=== PATIENT | male | born 1950 | race Caucasian/White ===

== ENCOUNTER → 2016-07-06 | Outpatient (CLI) | payer OTHER ==
--- NOTE | 2016-07-06 13:57 | KCIC ---
PROCEDURE MR of the left shoulder HISTORY Left shoulder pain. Soreness since May 2016. TECHNIQUE Routine multiplanar sequences are obtained. COMPARISON None FINDINGS The acromioclavicular joint is mildly degenerative. Mild generalized rotator cuff signal compatible with tendinosis. There is a full-thickness non retracted tear of the anterior supraspinatus tendon measuring about 8 millimeters AP diameter. Partial tear of the subscapularis tendon. Only very mild rotator cuff muscle volume loss. Trace subdeltoid bursal fluid No significant glenohumeral joint effusion. Small anteroinferior paralabral cyst, centered at about the 5 o'clock location. This communicates with some mild signal within the anteroinferior labrum compatible with a tear. The paralabral cyst extends towards the quadrilateral space. There is moderate fatty infiltration of the teres minor muscle as could be seen with quadrilateral space syndrome or axillary nerve impingement, chronic. The superior labrum is also irregular with some mild signal compatible with a small tear. The biceps tendon is intact, with mild tendinosis. No bone lesion or acute fracture. IMPRESSION 1. Tear of the anteroinferior labrum with small paralabral cyst. Moderate fatty infiltration of the teres minor muscle could indicate axillary impingement or chronic quadrilateral space syndrome. 2. Small non retracted full-thickness tear at the anterior supraspinatus tendon footprint. 3. Small superior labral tear. Electronically signed by: Wiliam Villanueva MD (Jul 06, 2016 13:56:20)
== END | disposition home or self-care (01) ==
LOC: KCIC MRI 12:44
PROVIDERS: ATTEND Chiropractor
DX: S43.432A Superior glenoid labrum lesion of left shoulder, initial encounter (principal); W19.XXXA Unspecified fall, initial encounter; Y93.89 Activity, other specified; Y92.89 Other specified places as the place of occurrence of the external cause; Y99.8 Other external cause status
CPT/HCPCS: 73221

== ENCOUNTER → 2018-02-17 | Outpatient (CLI) | payer OTHER ==
--- NOTE | 2018-02-17 15:59 | KCIC ---
4 view left rib detail series Clinical indications: Left flank pain of the lower posterior ribs for one week. FINDINGS: No acute left rib fracture or osteolytic process is seen. IMPRESSION: No acute left rib fracture. Electronically signed by: Lane Cortez MD (02/17/2018 3:56 PM) [place] [id number]
--- NOTE | 2018-02-17 16:01 | KCIC ---
CHEST PA LATERAL Clinical indications: Left flank pain of the lower posterior left rib cage for one week. No known injury. COMPARISON: None available. Findings: There is mild blunting of the left lateral costophrenic angle without blunting of the posterior costophrenic angle. This may be seen with pleural thickening rather than pleural effusion. No acute lung infiltrate or pulmonary edema or lung mass or pneumothorax is seen. The heart size, pulmonary vasculature, mediastinum and both [place] are unremarkable. The osseous structures appear intact. Impression: No acute radiographic abnormality is seen. Electronically signed by: Lane Cortez MD (02/17/2018 3:58 PM) [place] [id number]
== END | disposition home or self-care (01) ==
LOC: KCIC 12:29
PROVIDERS: ATTEND Family Medicine
DX: R07.81 Pleurodynia (principal)
CPT/HCPCS: 71046; 71100

== ENCOUNTER → 2020-09-06 | Outpatient (CLI) | payer OTHER ==
--- NOTE | 2020-09-06 16:32 | KCIC ---
EXAM: Neck sonogram. HISTORY: Left facial swelling and cervical lymphadenopathy. TECHNIQUE: Sonographic imaging of the left neck was performed. COMPARISON: None. FINDINGS: There is a small benign-appearing lymph node within cortex and fatty hilum along the latera l aspect of the left parotid gland measuring 10 mm in long axis, likely physiologic in etiology. The left parotid and submental glands are unremarkable. No suspicious mass or pathologically enlarged lym ph node is seen. IMPRESSION: No suspicious sonographic finding. Specifically, no suspicious mass or lymphadenopathy. C ross-sectional imaging may be indicated if there is concern for a sonographically occult lesion. Electronically signed by: Nicky Shultz MD (09/06/2020 4:29 PM) [id number]
== END ==
LOC: KCIC US 15:25
PROVIDERS: ATTEND Nurse Practitioner Gerontology
DX: R22.0 Localized swelling, mass and lump, head (principal)
CPT/HCPCS: 76536

== ENCOUNTER 2021-01-10 16:53 | Inpatient (IN) | payer OTHER ==
[~2021-01-10] VITALS: Ht 165.1 cm; Wt 69.1 kg
[2021-01-10] MEDS ORDERED: ORPHENADRINE CITRATE 60 MG/2 ML VIAL. IM ONE (19:30)
[2021-01-10] MEDS ORDERED: fentaNYL PF VIAL 100 MCG/2 ML VIAL IVP ONE (19:30)
[2021-01-10] MEDS ORDERED: methylPREDNISolone SOD SUCC PF 125 MG/2 ML VIAL. IV ONE (19:30)
--- NOTE | 2021-01-10 20:28 | PHYS DOC ---
Past Medical History Additional Past Medical Histor: CHRONIC NECK PAIN,BPH,TMJ Past Surgical History: No Surgical History Smoking Status: Never Smoker Alcohol Use: Occasionally General Adult EDM: Chief Complaint: NECK PAIN HPI: HPI: Patient is a 70 year old male who presents with chronic neck pain since October 30 and over the weekend is gotten worse. He states that 2 weeks ago he had an MRI done at [facility]. He states that his chiropractor referred him to this. He states that his chiropractor said that the MRI is just showing some arthritis. Patient has an appointment with his primary care doctor tomorrow. He has only been taking Voltaren tablets and recently ibuprofen for his pain. He had a root canal done today. Patient denies fever, dizziness but states he does have a headache that goes up the right side of his head. He denies stiffness of his neck, vision change, numbness or tingling, focal weakness, injury. Currently rating his pain at a 9 out of 10. Patient cannot sit still and is standing up and sitting down and rolling from side to side in the bed because he cannot get comfortable. He states is been like this since October. Patient has a history of BPH and TMJ. Review of Systems: Review of Systems: Constitutional: Denies fever or chills. [] Eyes: Denies change in visual acuity. [] HENT: Denies nasal congestion or sore throat. [] Respiratory: Denies cough or shortness of breath. [] Cardiovascular: Denies chest pain or edema. [] GI: Denies abdominal pain, nausea, vomiting, bloody stools or diarrhea. [] : Denies dysuria. [] Musculoskeletal: + Cervical back pain or denies joint pain. [] Integument: Denies rash. [] Neurologic: + headache, denies focal weakness or sensory changes. [] Endocrine: Denies polyuria or polydipsia. [] Lymphatic: Denies swollen glands. [] Psychiatric: Denies depression or anxiety. [] Heart Score: C/O Chest Pain: No Current Medications: Current Medications Medications (Trade) Dose Ordered Sig/Dakota Start Time Stop Time Status Last Admin Dose Admin Fentanyl Citrate (Fentanyl 2ml Vial) 50 mcg 1X ONCE 01/10/21 19:30 01/10/21 19:31 DC 01/10/21 19:47 50 MCG Methylprednisolone Sodium Succinate (SOLU-Medrol 125MG VIAL) 125 mg 1X ONCE 01/10/21 19:30 01/10/21 19:31 DC 01/10/21 19:46 125 MG Orphenadrine Citrate (Norflex) 60 mg 1X ONCE 01/10/21 19:30 01/10/21 19:31 DC 01/10/21 19:46 60 MG Allergies: Allergies: Allergies Coded Allergies Type Severity Reaction Last Updated Verified No Known Drug Allergies 01/10/21 No Physical Exam: PE: Constitutional: Well developed, well nourished, no acute distress, non-toxic appearance. [] HENT: Normocephalic, atraumatic, bilateral external ears normal, oropharynx moist, no oral exudates, nose normal. [] Eyes: PERRLA, EOMI, conjunctiva normal, no discharge. [] Neck: Normal range of motion, slight tenderness just to the right adjacent of the spine, supple, no stridor. [] Cardiovascular:Heart rate regular rhythm, no murmur [] Lungs & Thorax: Bilateral breath sounds clear to auscultation [] Abdomen: Bowel sounds normal, soft, no tenderness, no masses, no pulsatile masses. [] Skin: Warm, dry, no erythema, no rash. [] Back: No tenderness, no CVA tenderness. [] Extremities: No tenderness, no cyanosis, no clubbing, ROM intact, no edema. [] Neurologic: Alert and oriented X 3, normal motor function, normal sensory function, no focal deficits noted. [] Psychologic: Affect normal, judgement normal, mood normal. [] Current Patient Data: Vital Signs: Vital Signs Date Time Temp Pulse Resp B/P (MAP) Pulse Ox O2 Delivery O2 Flow Rate FiO2 01/10/21 19:47 18 97 Room Air 01/10/21 18:05 97.4 89 207/93 (131) 97.4 EKG: EKG: [] Radiology/Procedures: Radiology/Procedures: [] Impression: [facility] [address] [place] [address] IMAGING REPORT Signed PATIENT: RICKI MARTINS ACCOUNT: [id number] : 1950 LOCATION: ER AGE: 70 SEX: M EXAM STATUS: REG ER ORD. PHYSICIAN: CLEO GREGORY APRN REASON: SEVERE RIGHT SIDE HEAD PAIN AND BACK OF NECK PAIN PROCEDURE: CT HEAD AND CERVICAL SPINE WO Exam: CT head and cervical spine INDICATION: Severe right-sided head pain and back pain TECHNIQUE: Sequential axial images through the head and cervical spine were obtained without the administration of IV contrast. Exposure: One or more of the following in the visualized dose reduction techniques were utilized for this examination: 1. Automated exposure control 2. Adjustment of the MA and/or KV according to patient size 3. Use of iterative of reconstructive technique Comparisons: None FINDINGS: Head: No focal parenchymal lesion or hemorrhage is identified. There is no midline shift or sulcal effacement. No acute vascular territory infarction is identified. Contreras-white distinction is preserved. The ventricular system is within normal limits without compression hydrocephalus. The basal cisterns are well maintained. The visualized portions of the paranasal sinuses and mastoid air cells are well- pneumatized. No acute fractures. Cervical spine: Straightening of the cervical spine which may positional. Vertebral body heights are well-maintained. Fracture to the cervical spine is not identified. Multilevel spondylotic change in cervical spine with degenerative disc disease greatest at C5-C6, C6-C7 and C7-T1. Mild bilateral facet arthropathy is also noted in cervical spine. Visualized paraspinal soft tissues are unremarkable. IMPRESSION: 1. No acute intracranial abnormality. 2. Negative CT C-spine for acute traumatic injury. Electronically signed by: Wilder Bolaños MD (01/10/2021 8:30 PM) [facility] DICTATED and SIGNED BY: WILDER BOLAÑOS MD DATE: 01/10/[id number] 0 Course & Med Decision Making: Course & Med Decision Making Pertinent Labs and Imaging studies reviewed. (See chart for details) See HPI. Alert and oriented x4. Ambulatory with a steady gait. Is moving his arms and his legs he does have range of motion in his neck but it is painful. Speaks in full complete sentences. Skin pink warm and dry. Slight tenderness to the right side of the neck just adjacent to the actual spine. When patient goes to lay back or sit up he appears to be stiff like he does not want to bend. He again denies any stiffness. Spoke to Stacey nurse practitioner of Dr. Nance he stated that if patient's pain was intolerable then he could be admitted. Patient has been given fent anyl, Solu-Medrol, Norflex. He states that did not help. I then gave him morphine 4 mg and he states that it did help more than the fentanyl but he is feeling the pain coming back after an hour. He states he would like to be admitted so that he can get this taken care of and see the neurosurgeon in the morning. Patient is admitted for intractable neck pain. [] Dragon Disclaimer: Dragon Disclaimer: This electronic medical record was generated, in whole or in part, using a voice recognition dictation system. Departure Departure Impression: Primary Impression: Cervical pain (neck) Disposition: ADMITTED INPATIENT Admitting Physician: TIANNA Condition: STABLE Referrals: MELINDA DEAL MD (PCP) CLEO GREGORY APRN Jan 10, 2021 20:28
--- NOTE | 2021-01-10 20:33 | RAD ---
Exam: CT head and cervical spine INDICATION: Severe right-sided head pain and back pain TECHNIQUE: Sequential axial images through the head and cervical spine were obtained without the admi nistration of IV contrast. Exposure: One or more of the following in the visualized dose reduction techniques were utilized for this examination: 1. Automated exposure control 2. Adjustment of the MA and/or KV according to patient size 3. Use of iterative of reconstructive technique Comparisons: None FINDINGS: Head: No focal parenchymal lesion or hemorrhage is identified. There is no midline shift or sulcal effaceme nt. No acute vascular territory infarction is identified. Contreras-white distinction is preserved. The ventricular system is within normal limits without compression hydrocephalus. The basal cisterns are well maintained. The visualized portions of the paranasal sinuses and mastoid air cells are well-pneumatized. No acute fractures. Cervical spine: Straightening of the cervical spine which may positional. Vertebral body heights are well-maintained. Fracture to the cervical spine is not identified. Multilevel spondylotic change in cervical spine with degenerative disc disease greatest at C5-C6, C6- C7 and C7-T1. Mild bilateral facet arthropathy is also noted in cervical spine. Visualized paraspinal soft tissues are unremarkable. IMPRESSION: 1. No acute intracranial abnormality. 2. Negative CT C-spine for acute traumatic injury. Electronically signed by: Wilder Dozier MD (01/10/2021 8:30 PM) [facility]
[2021-01-10] MEDS ORDERED: MORPHINE SULFATE 4 MG/ML INJ. IVP ONE (21:00)
[2021-01-10] MEDS ORDERED: MORPHINE SULFATE 2 MG/ML INJ. IVP PRN (23:00)
[2021-01-10] MEDS ORDERED: ONDANSETRON PF 4 MG/2 ML VIAL. IVP ONE (23:30)
--- NOTE | 2021-01-11 02:00 | NUR ---
Received patient to room 444 per wheelchair at 0145 from ER. Admitting diagnosis: intractable neck pain. Patient states he has been having neck pain for the last two months and that over the last weekend, the pain increased without any injury. Patient had MRI done 2 weeks ago in [place], [place] that was ordered by his chiropractor and he was told that the results showed arthritis. Patient had a CT Scan of cervical spine here at [facility] 01/10 that showed Degenerative Disc Disease of C5-T1 but was negative for traumatic injury. Patient also had a root canal on 01/10/21 and c/o pain on right side of face and head with c/o of swelling and pain. Patient is moderate distress due to neck pain. Will give IV pain meds and an ice pack. Dr. Nance was called by ER to see patient later today. Will continue to monitor.
[2021-01-11 02:30] VITALS: BP 158/72
--- NOTE | 2021-01-11 03:50 | NUR ---
Patient's to bring in current med list later this morning.
[2021-01-11 07:20] VITALS: BP 130/76
[2021-01-11 08:56] LABS: BASO % 0 % (0-3); EOS % 0 % (0-3); HEMATOCRIT 44.3 % (39.0-53.0); HEMOGLOBIN 15.8 g/dL (13.0-17.5); LYMPH # 0.4 x10^3/uL (1.0-4.8); LYMPH % 3 % (24-48); MEAN CORPUSCULAR HEMOGLOBIN 30 pg (25-35); MEAN CORPUSCULAR HGB CONC 36 g/dL (31-37); MEAN CORPUSCULAR VOLUME 84 fL (79-100); MONO # 0.4 x10^3/uL (0.0-1.1); MONO % 3 % (0-9); NEUT # 13.3 x10^3/uL (1.8-7.7); NEUT % 94 % (31-73); PLATELET COUNT 150 x10^3/uL (140-400); RED BLOOD COUNT 5.27 x10^6/uL (4.30-5.70); RED CELL DISTRIBUTION WIDTH 13.6 % (11.5-14.5); WHITE BLOOD COUNT 14.1 x10^3/uL (4.0-11.0)
--- NOTE | 2021-01-11 08:56 | PDOC1 ---
History and Physical Date of Admission Date of Admission DATE: 01/11/21 TIME: 08:55 Source Source: Chart review, Patient History of Present Illness History of Present Illness MR. 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 He has had an MRI done, at [facility]. He states that his chiropractor said that the MRI is just showing some arthritis. Patient has an appointment with his primary care doctor tomorrow. He has only been taking Voltaren tablets and recently ibuprofen for his pain. Patient denies fever, dizziness but states he does have a headache that goes up the right side of his head. He denies stiffness of his neck, vision change, numbness or tingling, focal weakness, injury. Currently rating his pain at a 9 out of 10. Patient cannot sit still and is standing up and sitting down and rolling from side to side in the bed because he cannot get comfortable. Past Medical History Past Medical History BPH, Cardiovascular: HTN GI: GERD Endocrine: Diabetes Past Surgical History Past Surgical History: No pertinent history Family History Family History: No Significant, Diabetes Social History Smoke: No ALCOHOL: none Drugs: None Current Problem List Problem List Problems Medical Problems: (1) Cervical pain (neck) Status: Acute Current Medications Current Medications Current Medications Methylprednisolone Sodium Succinate (SOLU-Medrol 125MG VIAL) 125 mg 1X ONCE IV Last administered on 01/10/21at 19:46; Start 01/10/21 at 19:30; Stop 01/10/21 at 19:31; Status DC Fentanyl Citrate (Fentanyl 2ml Vial) 50 mcg 1X ONCE IVP Last administered on 01/10/21at 19:47; Start 01/10/21 at 19:30; Stop 01/10/21 at 19:31; Status DC Orphenadrine Citrate (Norflex) 60 mg 1X ONCE IM Last administered on 01/10/21at 19:46; Start 01/10/21 at 19:30; Stop 01/10/21 at 19:31; Status DC Morphine Sulfate (Morphine Sulfate) 4 mg 1X ONCE IVP Last administered on 01/10/21at 21:24; Start 01/10/21 at 21:00; Stop 01/10/21 at 21:01; Status DC Morphine Sulfate (Morphine Sulfate) 2 mg PRN Q2HR PRN IVP SEVERE PAIN 7-10 Last administered on 01/11/21at 02:07; Start 01/10/21 at 23:00; Stop 01/11/21 at 22:59 Ondansetron HCl (Zofran) 4 mg 1X ONCE IVP ; Start 01/10/21 at 23:30; Stop 01/10/21 at 23:31; Status DC Allergies Allergies: Coded Allergies: No Known Drug Allergies (Unverified , 01/10/21) ROS General: No: Chills, Night Sweats, Fatigue, Malaise, Appetite, Other PSYCHOLOGICAL ROS: No: Anxiety, Behavioral Disorder, Concentration difficultie, Decreased libido, Depression, Disorientation, Hallucinations, Hostility, Irritablity, Memory difficulties, Mood Swings, Obsessive thoughts, Physical abuse, Sexual abuse, Sleep disturbances, Suicidal ideation, Other Eyes: No Blurry vision, No Decreased vision, No Double vision, No Dry eyes, No Excessive tearing, No Eye Pain, No Itchy Eyes, No Loss of vision, No Photo phobia, No Scotomata, No Uses contacts, No Uses glasses, No Other HEENT: YES: Heacaches; No: Visual Changes, Hearing change, Nasal congestion, Nasal discharge, Oral lesions, Sinus pain, Sore Throat, Epistaxis, Sneezing, Snoring, Tinnitus, Vertigo, Vocal changes, Other ENDOCRINE: No: Breast Changes, Galactorrhea, Hair Pattern Changes, Hot Flashes, Malaise/lethargy, Mood Swings, Palpitations, Polydipsia/polyuria, Skin Changes, Temperature Intolerance, Unexpected Weight Changes, Other Respiratory: No: Cough, Hemoptysis, Orthopnea, Pleuritic Pain, Shortness of breath, SOB with excertion, Sputum Changes, Stridor, Tachypnea, Wheezing, Other Cardiovascular: No Chest Pain, No Palpitations, No Orthopnea, No Paroxysmal Noc. Dyspnea, No Edema, No Lt Headedness, No Other Gastrointestinal: No Nausea, No Vomiting, No Abdominal Pain, No Diarrhea, No Constipation, No Melena, No Hematochezia, No Other Genitourinary: No Dysuria, No Frequency, No Incontinence, No Hematuria, No Retention, No Discharge, No Urgency, No Pain, No Flank Pain, No Other, No , No , No , No , No , No , No Musculoskeletal: Yes Joint Stiffness (neck wiht pain); No Gait Disturbance, No Joint Pain, No Joint Swelling, No Muscle Pain, No M uscular Weakness, No Pain In:, No Swelling In:, No Other Neurological: No Behavorial Changes, No Bowel/Bladder ControlChng, No Confusion, No Dizziness, No Gait Disturbance, No Headaches, No Impaired Coord/balance, No Memory Loss, No Numbness/Tingling, No Seizures, No Speech Problems, No Tremors, No Visual Changes, No Weakness, No Other Skin: Yes Dry Skin; No Eczema, No Hair Changes, No Lumps, No Mole Changes, No Mottling, No Nail Changes, No Pruritus, No Rash, No Skin Lesion Changes, No Other, No Acne Physical Exam General: Alert, Cooperative, mild distress HEENT: PERRLA, Mucous membr. moist/pink Lungs: Normal air movement Heart: S1S2, RRR, murmurs Rectal Exam: not examined Extremities: No cyanosis, Normal pulses Skin: No breakdown Neuro: Normal speech, Sensation intact Psych/Mental Status: Mental status NL, Mood NL Vitals Vitals Vital Signs Date Time Temp Pulse Resp B/P (MAP) Pulse Ox O2 Delivery O2 Flow Rate FiO2 01/11/21 07:20 98.4 85 20 130/76 (94) 93 Room Air 98.4 01/10/21 20:00 97.0 VTE Prophylaxis Ordered VTE Prophylaxis Devices: No VTE Pharmacological Prophylaxi: No Assessment/Plan Assessment/Plan neck pain, new cervical, has not improved with chiropractic Dm2 htn BPH Justifications for Admission Other Justification ION TAYLOR MD Jan 11, 2021 08:56
[2021-01-11 09:09] LABS: CALCIUM 9.1 mg/dL (8.5-10.1); CREATININE 0.9 mg/dL (0.7-1.3); GFR 83.9; POTASSIUM 4.8 mmol/L (3.5-5.1)
[2021-01-11 09:14] LABS: ALBUMIN 3.8 g/dL (3.4-5.0); ALBUMIN/GLOBULIN RATIO 1.1 (1.0-1.7); TOTAL BILIRUBIN 0.7 mg/dL (0.2-1.0); TOTAL PROTEIN 7.3 g/dL (6.4-8.2)
[2021-01-11] MEDS: MORPHINE SULFATE 2 MG/ML INJ. IVP PRN (09:39)
[2021-01-11 10:19] LABS: % BANDS 1 % (0-9); % LYMPHS 4 % (24-48); % MONOS 3 % (0-10); % SEGS 92 % (35-66); PLT ESTIMATE ADEQUATE (ADEQUATE)
[2021-01-11 11:25] VITALS: BP 131/66
[2021-01-11] MEDS ORDERED: TAMS0.4C97 PO (11:34)
[2021-01-11] MEDS ORDERED: OMEP40CA7 PO (11:34)
[2021-01-11] MEDS ORDERED: DICL50TA4 PO (11:34)
[2021-01-11] MEDS ORDERED: [UNRECOGNIZED DRUG - CODE] TD (11:34)
[2021-01-11] MEDS ORDERED: DUTA0.5C PO (11:34)
[2021-01-11] MEDS ORDERED: OMEG1CAP27 PO (11:34)
[2021-01-11] MEDS ORDERED: ACET325T9 PO (11:34)
[2021-01-11] MEDS ORDERED: ASPI-630 PO (11:34)
[2021-01-11] MEDS ORDERED: ATOR10TA60 PO (11:34)
[2021-01-11] MEDS ORDERED: MAGN250T10 PO (11:34)
[2021-01-11] MEDS ORDERED: CLIN-94 PO (11:34)
[2021-01-11] MEDS ORDERED: DICY20TA3 PO (11:34)
[2021-01-11] MEDS ORDERED: METF10007 PO (11:34)
[2021-01-11] MEDS ORDERED: MONT10TA49 PO (11:34)
[2021-01-11] MEDS ORDERED: SAW1CAPS8 PO (11:34)
[2021-01-11] MEDS ORDERED: ACETAMINOPHEN 500 MG TABLET PO PRN (13:00)
[2021-01-11] MEDS ORDERED: ACETAMINOPHEN/CODEINE 300/30MG TABLET. PO PRN (13:00)
--- NOTE | 2021-01-11 15:00 | PDOC ---
Provider Note Date of Service: DATE: 01/11/21 TIME: 14:52 Provider Note 70 year old male admit with neck pain, worse over weeks, started in October and he has been seeking vp care management. He has had an MRI done at [facility]. Patient has an appointment with his primary care doctor tomorrow. He has only been taking Voltaren tablets and recently ibuprofen for his pain. Reports pain in the right side of his neck and radiates up behind his right ear. neuro intact Requested MRI from [facility] through [employer] will follow Justifications for Admission Other Justification NAMRATA MOORE MD Jan 11, 2021 14:59
[2021-01-11 15:20] VITALS: BP 134/63
[2021-01-11] MEDS ORDERED: DOCUSATE SODIUM 100 MG CAPSULE. PO PRN (15:30)
[2021-01-11] MEDS: oxyCODONE/APAP 5/325 1 TAB TABLET PO PRN ×2 (15:34→23:43)
[2021-01-11] MEDS: metFORMIN 500 MG TABLET PO SCH (17:41)
[2021-01-11] MEDS: DICYCLOMINE HCL 10 MG CAPSULE PO SCH ×2 (17:41→21:33)
[2021-01-11] MEDS: DEXAMETHASONE SOD PHOS 4 MG/ML VIAL IVP SCH ×2 (17:43→23:43)
[2021-01-11 19:30] VITALS: BP 134/72
[2021-01-11] MEDS: CLINDAMYCIN HCL 150 MG CAPSULE. PO SCH (21:33)
[2021-01-11] MEDS: DICLOFENAC SODIUM 25 MG TABLET.DR PO SCH (21:33)
[2021-01-11] MEDS: MONTELUKAST SODIUM 10 MG TABLET. PO SCH (21:34)
[2021-01-11] MEDS: ATORVASTATIN CALCIUM 10 MG TABLET. PO SCH (21:34)
--- NOTE | 2021-01-11 22:50 | CONS ---
DATE OF CONSULTATION: 01/11/2021 LOCATION: He is in room 444. I saw him at the request of Dr. Padilla for evaluation of neck pain. HISTORY OF PRESENT ILLNESS: This is a 70-year-old male with chronic neck pain going on since October without any radiation of pain to the extremities or any tingling and numbness sensation. The pain mostly over the right side of his neck, goes up to the right side of his face. He denies any tingling, numbness sensation in the extremities or any trouble with his bowel or bladder control or balance. The patient has seen Dr. Stauffer and also chiropractor, had x-rays and MRI scan done, which revealed multilevel degenerative disk disease and degenerative joint disease. The patient has been taking Voltaren without any stomach irritation. ALLERGIES: He is not known allergic to any medication. PAST MEDICAL HISTORY: Includes benign prostatic hypertrophy, hypertension, gastroesophageal reflux disease, diabetes. 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 He also uses physical modalities and exercises. PHYSICAL EXAMINATION: Physical exam today revealed a middle-aged male. He is alert, oriented to time, place, person and circumstance, follows commands appropriately. Moves all 4 extremities voluntarily where he had 4+/5 grade muscle strength. Deep tendon reflexes are decreased overall. He had equal perception of touch and pinprick sensation bilaterally. He had significant limitation of lateral bending of the cervical spine. Some limitation of flexion and extension too. No significant tenderness to palpation of cervical spine or cervical paraspinal muscles or posterior shoulder girdle muscles. He is independent with his mobility and self-care. He can walk on his tiptoes and on his heels and in a straight line, one foot in front of the other without any loss of balance. No significant cervical paraspinal muscle spasm was noted at this time. ASSESSMENT: Chronic neck pain from degenerative disk disease and degenerative joint disease of cervical vertebrae without any clinical evidence of ongoing cervical radiculopathy or no clinical evidence of cervical spinal stenosis. The patient with known diabetes mellitus with peripheral neuropathy. RECOMMENDATIONS: I have instructed him in a home program of physical modalities and relax stretching exercises and continue taking anti-inflammatory medications along with other meds for stomach or kidneys. I do not see any need for any trigger point injections or cervical epidural steroid injections at the present time. Dr. Padilla appreciate asking me to participate in the care of this interesting patient. Home when medically stable with outpatient followup. SRK/CYNDI/MANUELITO DR: RONN/ana TID: [id number]
[2021-01-11 23:25] VITALS: BP 154/74
[2021-01-12 02:50] VITALS: BP 155/77
[2021-01-12] MEDS: PANTOPRAZOLE 40 MG TABLET.DR. PO SCH (06:03)
[2021-01-12] MEDS: DEXAMETHASONE SOD PHOS 4 MG/ML VIAL IVP SCH ×2 (06:04→12:04)
[2021-01-12 07:00] VITALS: BP 168/84
--- NOTE | 2021-01-12 08:22 | PDOC ---
[employer] PROGRESS NOTE Date of Service DOS: DATE: 01/12/21 TIME: 08:18 Chief Complaint Chief Complaint neck pain, new cervical, has not improved with chiropractic Dm2 htn BPH History of Present Illness History of Present Illness MR. Coyne is a 70 year old male admit with left neck pain, worse over weeks, started in October and he has been seeking career information specialist. He has had an MRI done, at [facility]. Thought this was initially due to dental caries and after having a root canal on 01/10/2021 and laying in the dental chair for several hours his pain yet so severe he was unable to make his primary care appointment to review the MRI results and came to the ED instead. He states that his chiropractor said that the MRI is just showing some arth ritis. He has only been taking Voltaren tablets and recently ibuprofen for his pain. Initial pain was 9 out of 10 Patient denies fever, dizziness but states he does have a headache that goes up the right side of his head. He denies stiffness of his neck, vision change, numbness or tingling, focal weakness, injury. Patient cannot sit still and is standing up and sitting down and rolling from side to side in the bed because he cannot get comfortable. Pain resolved with IV morphine which she is requesting he says oral Percocet did not help quite as much and after taking steroids he was up all night. Currently rating his pain at a 4 out of 10. Tentative plan to do steroids and outpatient epidural steroid injection per neurosurgery. No weakness no numbness or tingling. MRI report not available to me but there is definitely C5-6 C6-7 anterior disc bulging right greater than left. Vitals/I&O Vitals/I&O: Vital Signs Date Time Temp Pulse Resp B/P (MAP) Pulse Ox O2 Delivery O2 Flow Rate FiO2 01/12/21 02:50 97.7 70 20 155/77 (103) 94 Room Air 97.7 I & O 01/11/21 01/11/21 01/12/21 15:00 23:00 07:00 Intake Total 250 ml 500 ml 0 ml Balance 250 ml 500 ml 0 ml Physical Exam General: Alert, Cooperative, mild distress Extremities: No cyanosis, Normal pulses Skin: No breakdown Assessment and Plan Assessmemt and Plan Problems Medical Problems: (1) Cervical pain (neck) Status: Acute Comment Review of Relevant I have reviewed the following items gallo (where applicable) has been applied. Medications: Current Medications Medications (Trade) Dose Ordered Sig/[place] Route PRN Reason Start Time Stop Time Status Last Admin Dose Admin Morphine Sulfate (Morphine Sulfate) 4 mg PRN Q2HR PRN IVP PAIN 01/11/21 09:00 01/11/21 09:39 Oxycodone/ Acetaminophen (Percocet 5/325) 1 tab PRN Q4HRS PRN PO SEVERE PAIN 01/11/21 13:00 01/11/21 23:43 Docusate Sodium (Colace) 100 mg PRN DAILY PRN PO HARD STOOLS 01/11/21 15:30 01/11/21 15:34 Atorvastatin Calcium (Lipitor) 10 mg HS PO 01/11/21 21:00 01/11/21 21:34 Montelukast Sodium (Singulair) 10 mg HS PO 01/11/21 21:00 01/11/21 21:34 Clindamycin HCl (Cleocin) 300 mg TID PO 01/11/21 21:00 01/11/21 21:33 Diclofenac Sodium (Voltaren) 50 mg BID PO 01/11/21 21:00 01/11/21 21:33 Dicyclomine HCl (Bentyl) 40 mg QID PO 01/11/21 17:00 01/11/21 21:33 Metformin HCl (Glucophage) 1,000 mg BIDWMEALS PO 01/11/21 17:00 01/11/21 17:41 Pantoprazole Sodium (Protonix) 40 mg DAILYAC PO 01/12/21 07:30 01/12/21 06:03 Dexamethasone Sodium Phosphate (Decadron) 4 mg Q6HRS IVP 01/11/21 18:00 01/12/21 06:04 Justifications for Admission Other Justification JHOAN ROSENBERG MD Jan 12, 2021 08:22
[2021-01-12] MEDS: DUTASTERIDE 0.5 MG CAPSULE PO SCH (09:27)
[2021-01-12] MEDS: metFORMIN 500 MG TABLET PO SCH ×2 (09:28→16:24)
[2021-01-12] MEDS: DICYCLOMINE HCL 10 MG CAPSULE PO SCH ×4 (09:28→20:45)
[2021-01-12] MEDS: ASPIRIN CHEWABLE 81 MG TABLET. PO SCH (09:28)
[2021-01-12] MEDS: CLINDAMYCIN HCL 150 MG CAPSULE. PO SCH ×3 (09:28→20:44)
[2021-01-12] MEDS: DICLOFENAC SODIUM 25 MG TABLET.DR PO SCH ×2 (09:28→20:43)
[2021-01-12] MEDS: MAGNESIUM OXIDE 400 MG TABLET PO SCH (09:28)
[2021-01-12] MEDS: TAMSULOSIN 0.4 MG CAP.ER.24H. PO SCH (09:28)
[2021-01-12] MEDS: OMEGA-3 FATTY ACIDS/FISH OIL 1,000 MG CAPSULE. PO SCH (09:28)
[2021-01-12] MEDS: oxyCODONE/APAP 5/325 1 TAB TABLET PO PRN ×2 (09:33→13:28)
[2021-01-12 11:00] VITALS: BP 146/71
[2021-01-12] MEDS ORDERED: OXYC1TAB15 PO (11:12)
[2021-01-12] MEDS ORDERED: DEXA4TAB63 PO (11:12)
--- NOTE | 2021-01-12 11:21 | PDOC ---
PROGRESS NOTES Date of Service DATE: 01/12/21 TIME: 11:19 Subjective Subjective He still continued neck pain and also having tooth ache. Objective Objective Vital Signs Date Time Temp Pulse Resp B/P (MAP) Pulse Ox O2 Delivery O2 Flow Rate FiO2 01/12/21 10:05 16 Room Air 01/12/21 07:00 96.9 74 168/84 (112) 94 96.9 01/10/21 20:00 97.0 Intake and Output 01/12/21 07:00 Intake Total 750 ml Balance 750 ml Intake Oral 750 ml # Voids 2 Physical Exam Physical Exam He is alert,sitting up in bedside chair and he continues with stiffness of his neck and he is independent with his mobility and self care. Assessment Assessment Problems Medical Problems: (1) Cervical pain (neck) Status: Acute Plan Plan of Alf when medically stable. Comment Review of Relevant I have reviewed the following items gallo (where applicable) has been applied. Labs Laboratory Tests Test 01/11/21 07:40 White Blood Count 14.1 x10^3/uL (4.0-11.0) Red Blood Count 5.27 x10^6/uL (4.30-5.70) Hemoglobin 15.8 g/dL (13.0-17.5) Hematocrit 44.3 % (39.0-53.0) Mean Corpuscular Volume 84 fL (79-100) Mean Corpuscular Hemoglobin 30 pg (25-35) Mean Corpuscular Hemoglobin Concent 36 g/dL (31-37) Red Cell Distribution Width 13.6 % (11.5-14.5) Platelet Count 150 x10^3/uL (140-400) Neutrophils (%) (Auto) 94 % (31-73) Lymphocytes (%) (Auto) 3 % (24-48) Monocytes (%) (Auto) 3 % (0-9) Eosinophils (%) (Auto) 0 % (0-3) Basophils (%) (Auto) 0 % (0-3) Neutrophils # (Auto) 13.3 x10^3/uL (1.8-7.7) Lymphocytes # (Auto) 0.4 x10^3/uL (1.0-4.8) Monocytes # (Auto) 0.4 x10^3/uL (0.0-1.1) Eosinophils # (Auto) 0.0 x10^3/uL (0.0-0.7) Basophils # (Auto) 0.0 x10^3/uL (0.0-0.2) Segmented Neutrophils % 92 % (35-66) Band Neutrophils % 1 % (0-9) Lymphocytes % 4 % (24-48) Monocytes % 3 % (0-10) Platelet Estimate Adequate (ADEQUATE) Sodium Level 130 mmol/L (136-145) Potassium Level 4.8 mmol/L (3.5-5.1) Chloride Level 93 mmol/L (98-107) Carbon Dioxide Level 28 mmol/L (21-32) Anion Gap 9 (6-14) Blood Urea Nitrogen 16 mg/dL (8-26) Creatinine 0.9 mg/dL (0.7-1.3) Estimated GFR (Cockcroft-Gault) 83.9 BUN/Creatinine Ratio 18 (6-20) Glucose Level 219 mg/dL (70-99) Calcium Level 9.1 mg/dL (8.5-10.1) Total Bilirubin 0.7 mg/dL (0.2-1.0) Aspartate Amino Transf (AST/SGOT) 42 U/L (15-37) Alanine Aminotransferase (ALT/SGPT) 74 U/L (16-63) Alkaline Phosphatase 45 U/L (46-116) Total Protein 7.3 g/dL (6.4-8.2) Albumin 3.8 g/dL (3.4-5.0) Albumin/Globulin Ratio 1.1 (1.0-1.7) Medications Current Medications Methylprednisolone Sodium Succinate (SOLU-Medrol 125MG VIAL) 125 mg 1X ONCE IV Last administered on 01/10/21at 19:46; Start 01/10/21 at 19:30; Stop 01/10/21 at 19:31; Status DC Fentanyl Citrate (Fentanyl 2ml Vial) 50 mcg 1X ONCE IVP Last administered on 01/10/21at 19:47; Start 01/10/21 at 19:30; Stop 01/10/21 at 19:31; Status DC Orphenadrine Citrate (Norflex) 60 mg 1X ONCE IM Last administered on 01/10/21at 19:46; Start 01/10/21 at 19:30; Stop 01/10/21 at 19:31; Status DC Morphine Sulfate (Morphine Sulfate) 4 mg 1X ONCE IVP Last administered on 01/10/21at 21:24; Start 01/10/21 at 21:00; Stop 01/10/21 at 21:01; Status DC Morphine Sulfate (Morphine Sulfate) 2 mg PRN Q2HR PRN IVP SEVERE PAIN 7-10 Last administered on 01/11/21at 02:07; Start 01/10/21 at 23:00; Stop 01/11/21 at 09:00; Status DC Ondansetron HCl (Zofran) 4 mg 1X ONCE IVP ; Start 01/10/21 at 23:30; Stop 01/10/21 at 23:31; Status DC Morphine Sulfate (Morphine Sulfate) 4 mg PRN Q2HR PRN IVP PAIN Last administered on 01/11/21at 09:39; Start 01/11/21 at 09:00 Oxycodone/ Acetaminophen (Percocet 5/325) 1 tab PRN Q4HRS PRN PO SEVERE PAIN Last administered on 01/12/21at 09:33; Start 01/11/21 at 13:00 Acetaminophen/ Codeine Phosphate (Tylenol #3) 1 tab PRN Q6HRS PRN PO MODERATE PAIN; Start 01/11/21 at 13:00 Acetaminophen (Tylenol) 1,000 mg PRN Q6HRS PRN PO MILD PAIN 1-3; Start 01/11/21 at 13:00 Docusate Sodium (Colace) 100 mg PRN DAILY PRN PO HARD STOOLS Last administered on 01/11/21at 15:34; Start 01/11/21 at 15:30 Aspirin (Aspirin Chewable) 81 mg DAILY PO Last administered on 01/12/21at 09:28; Start 01/12/21 at 09:00 Atorvastatin Calcium (Lipitor) 10 mg HS PO Last administered on 01/11/21at 21:34; Start 01/11/21 at 21:00 Dutasteride (Avodart) 0.5 mg DAILY PO Last administered on 01/12/21at 09:27; Start 01/12/21 at 09:00 Montelukast Sodium (Singulair) 10 mg HS PO Last administered on 01/11/21at 21:34; Start 01/11/21 at 21:00 Tamsulosin HCl (Flomax) 0.8 mg DAILY PO Last administered on 01/12/21 09:28; Start 01/12/21 at 09:00 Clindamycin HCl (Cleocin) 300 mg TID PO Last administered on 01/12/21 09:28; Start 01/11/21 at 21:00 Diclofenac Sodium (Voltaren) 50 mg BID PO Last administered on 01/12/21 09:28; Start 01/11/21 at 21:00 Dicyclomine HCl (Bentyl) 40 mg QID PO Last administered on 01/12/21 09:28; Start 01/11/21 at 17:00 Magnesium Oxide (Magnesium Oxide) 200 mg DAILY PO Last administered on 01/12/21 09:28; Start 01/12/21 at 09:00 Metformin HCl (Glucophage) 1,000 mg BIDWMEALS PO Last administered on 01/12/21 09:28; Start 01/11/21 at 17:00 Fish Oil (Fish Oil) 1,000 mg DAILY PO Last administered on 01/12/21 09:28; Start 01/12/21 at 09:00 Pantoprazole Sodium (Protonix) 40 mg DAILYAC PO Last administered on 01/12/21 06:03; Start 01/12/21 at 07:30 Dexamethasone Sodium Phosphate (Decadron) 4 mg Q6HRS IVP Last administered on 01/12/21 06:04; Start 01/11/21 at 18:00 Active Scripts Active Percocet 5-325 Mg Tablet (Oxycodone/Acetaminophen) 1 Each Tablet 1 Tab PO PRN Q6HRS PRN 6 Days Decadron (Dexamethasone) 4 Mg Tablet 1 Tab PO BID 5 Days Reported Tylenol (Acetaminophen) 325 Mg Tablet 2 Tab PO PRN Q4HRS Metformin Hcl 1,000 Mg Tablet 1,000 Mg PO BIDWMEALS Diclofenac Sodium 50 Mg Tablet.dr 1 Tab PO BID Clindamycin Hcl 300 Mg Capsule 300 Mg PO TID Fish Oil 1,000 Mg Softgel ([place]-3 Fatty Acids/Fish Oil) 1 Each Capsule 2 Each PO DAILY Saw [place] 450 mg Capsule (Saw [place] Fruit/Zinc Picoli) 1 Each Capsule 2 Each PO DAILY Aspirin 81 Mg Tab.chew 1 Tab PO DAILY Magnesium (Magnesium Oxide) 250 Mg Tablet 1 Tab PO DAILY 30 Days Testosterone 2.5 Gm Gel.packet 2.5 Gm TD DAILY08 Flomax (Tamsulosin Hcl) 0.4 Mg Cap.er.24h 2 Cap PO DAILY Dicyclomine Hcl 20 Mg Tablet 40 Mg PO QID Atorvastatin Calcium 10 Mg Tablet 10 Mg PO HS Montelukast Sodium Tablet (Montelukast Sodium) 10 Mg Tablet 10 Mg PO HS Omeprazole 40 Mg Capsule.dr 40 Mg PO DAILY Avodart (Dutasteride) 0.5 Mg Capsule 1 Cap PO DAILY Vitals/I & O Vital Sign - Last 24 Hours 01/11/21 01/11/21 01/11/21 01/11/21 11:25 15:20 19:30 23:25 Temp 98.0 98.2 98.2 97.7 98.0 98.2 98.2 97.7 Pulse 88 92 82 76 Resp 20 20 18 20 B/P (MAP) 131/66 (87) 134/63 (86) 134/72 (92) 154/74 (100) Pulse Ox 95 92 94 95 O2 Delivery Room Air Room Air Room Air Room Air 01/11/21 01/12/21 01/12/21 01/12/21 23:43 00:30 02:50 07:00 Temp 97.7 96.9 97.7 96.9 Pulse 70 74 Resp 20 B/P (MAP) 155/77 (103) 168/84 (112) Pulse Ox 94 94 O2 Delivery Room Air Room Air Room Air Room Air 01/12/21 01/12/21 09:33 10:05 Resp 16 O2 Delivery Room Air Room Air Intake and Output 01/11/21 01/11/21 01/12/21 15:00 23:00 07:00 Intake Total 250 ml 500 ml 0 ml Balance 250 ml 500 ml 0 ml Justifications for Admission Other Justification ROSELYN GRIGSBY MD Jan 12, 2021 11:21
[2021-01-12] MEDS: MORPHINE SULFATE 2 MG/ML INJ. IVP PRN ×2 (12:04→16:25)
[2021-01-12 15:00] VITALS: BP 132/65
--- NOTE | 2021-01-12 16:35 | PDOC ---
PROGRESS NOTES Date of Service DATE: 01/12/21 TIME: 16:33 Subjective Subjective right sided neck pain slightly improved Objective Objective Vital Signs Date Time Temp Pulse Resp B/P (MAP) Pulse Ox O2 Delivery O2 Flow Rate FiO2 01/12/21 16:25 16 Room Air 01/12/21 15:00 97.5 85 132/65 (87) 96 97.5 01/10/21 20:00 97.0 Intake and Output 01/12/21 07:00 Intake Total 750 ml Balance 750 ml Intake Oral 750 ml # Voids 2 Physical Exam General: Alert, Oriented X3, Cooperative MUSCULOSKELETAL: Other (IGNACIO, normal strength ) Neuro: Normal speech Assessment Assessment Problems Medical Problems: (1) Cervical pain (neck) Status: Acute Plan Plan of Care Reviewed MRI - multilevel degenerative changes cervical soft collar for comfort dc tomorrow, will make arrangements for cervical epidural steroid injections as OP, will follow up with me as OP Comment Review of Relevant I have reviewed the following items gallo (where applicable) has been applied. Labs Laboratory Tests Test 01/11/21 07:40 White Blood Count 14.1 x10^3/uL (4.0-11.0) Red Blood Count 5.27 x10^6/uL (4.30-5.70) Hemoglobin 15.8 g/dL (13.0-17.5) Hematocrit 44.3 % (39.0-53.0) Mean Corpuscular Volume 84 fL (79-100) Mean Corpuscular Hemoglobin 30 pg (25-35) Mean Corpuscular Hemoglobin Concent 36 g/dL (31-37) Red Cell Distribution Width 13.6 % (11.5-14.5) Platelet Count 150 x10^3/uL (140-400) Neutrophils (%) (Auto) 94 % (31-73) Lymphocytes (%) (Auto) 3 % (24-48) Monocytes (%) (Auto) 3 % (0-9) Eosinophils (%) (Auto) 0 % (0-3) Basophils (%) (Auto) 0 % (0-3) Neutrophils # (Auto) 13.3 x10^3/uL (1.8-7.7) Lymphocytes # (Auto) 0.4 x10^3/uL (1.0-4.8) Monocytes # (Auto) 0.4 x10^3/uL (0.0-1.1) Eosinophils # (Auto) 0.0 x10^3/uL (0.0-0.7) Basophils # (Auto) 0.0 x10^3/uL (0.0-0.2) Segmented Neutrophils % 92 % (35-66) Band Neutrophils % 1 % (0-9) Lymphocytes % 4 % (24-48) Monocytes % 3 % (0-10) Platelet Estimate Adequate (ADEQUATE) Sodium Level 130 mmol/L (136-145) Potassium Level 4.8 mmol/L (3.5-5.1) Chloride Level 93 mmol/L (98-107) Carbon Dioxide Level 28 mmol/L (21-32) Anion Gap 9 (6-14) Blood Urea Nitrogen 16 mg/dL (8-26) Creatinine 0.9 mg/dL (0.7-1.3) Estimated GFR (Cockcroft-Gault) 83.9 BUN/Creatinine Ratio 18 (6-20) Glucose Level 219 mg/dL (70-99) Calcium Level 9.1 mg/dL (8.5-10.1) Total Bilirubin 0.7 mg/dL (0.2-1.0) Aspartate Amino Transf (AST/SGOT) 42 U/L (15-37) Alanine Aminotransferase (ALT/SGPT) 74 U/L (16-63) Alkaline Phosphatase 45 U/L (46-116) Total Protein 7.3 g/dL (6.4-8.2) Albumin 3.8 g/dL (3.4-5.0) Albumin/Globulin Ratio 1.1 (1.0-1.7) Medications Current Medications Methylprednisolone Sodium Succinate (SOLU-Medrol 125MG VIAL) 125 mg 1X ONCE IV Last administered on 01/10/21at 19:46; Start 01/10/21 at 19:30; Stop 01/10/21 at 19:31; Status DC Fentanyl Citrate (Fentanyl 2ml Vial) 50 mcg 1X ONCE IVP Last administered on 01/10/21at 19:47; Start 01/10/21 at 19:30; Stop 01/10/21 at 19:31; Status DC Orphenadrine Citrate (Norflex) 60 mg 1X ONCE IM Last administered on 01/10/21 19:46; Start 01/10/21 at 19:30; Stop 01/10/21 at 19:31; Status DC Morphine Sulfate (Morphine Sulfate) 4 mg 1X ONCE IVP Last administered on 01/10/21at 21:24; Start 01/10/21 at 21:00; Stop 01/10/21 at 21:01; Status DC Morphine Sulfate (Morphine Sulfate) 2 mg PRN Q2HR PRN IVP SEVERE PAIN 7-10 Last administered on 01/11/21at 02:07; Start 01/10/21 at 23:00; Stop 01/11/21 at 09:00; Status DC Ondansetron HCl (Zofran) 4 mg 1X ONCE IVP ; Start 01/10/21 at 23:30; Stop 01/10/21 at 23:31; Status DC Morphine Sulfate (Morphine Sulfate) 4 mg PRN Q2HR PRN IVP PAIN Last administered on 01/12/21at 16:25; Start 01/11/21 at 09:00 Oxycodone/ Acetaminophen (Percocet 5/325) 1 tab PRN Q4HRS PRN PO SEVERE PAIN Last administered on 01/12/21at 13:28; Start 01/11/21 at 13:00; Stop 01/12/21 at 16:31; Status DC Acetaminophen/ Codeine Phosphate (Tylenol #3) 1 tab PRN Q6HRS PRN PO MODERATE PAIN; Start 01/11/21 at 13:00 Acetaminophen (Tylenol) 1,000 mg PRN Q6HRS PRN PO MILD PAIN 1-3; Start 01/11/21 at 13:00 Docusate Sodium (Colace) 100 mg PRN DAILY PRN PO HARD STOOLS Last administered on 01/11/21at 15:34; Start 01/11/21 at 15:30 Aspirin (Aspirin Chewable) 81 mg DAILY PO Last administered on 01/12/21at 09:28; Start 01/12/21 at 09:00 Atorvastatin Calcium (Lipitor) 10 mg HS PO Last administered on 01/11/21at 21:34; Start 01/11/21 at 21:00 Dutasteride (Avodart) 0.5 mg DAILY PO Last administered on 01/12/21at 09:27; Start 01/12/21 at 09:00 Montelukast Sodium (Singulair) 10 mg HS PO Last administered on 01/11/21at 21:34; Start 01/11/21 at 21:00 Tamsulosin HCl (Flomax) 0.8 mg DAILY PO Last administered on 01/12/21 09:28; Start 01/12/21 at 09:00 Clindamycin HCl (Cleocin) 300 mg TID PO Last administered on 01/12/21 13:27; Start 01/11/21 at 21:00 Diclofenac Sodium (Voltaren) 50 mg BID PO Last administered on 01/12/21 09:28; Start 01/11/21 at 21:00 Dicyclomine HCl (Bentyl) 40 mg QID PO Last administered on 01/12/21 16:24; Start 01/11/21 at 17:00 Magnesium Oxide (Magnesium Oxide) 200 mg DAILY PO Last administered on 01/12/21 09:28; Start 01/12/21 at 09:00 Metformin HCl (Glucophage) 1,000 mg BIDWMEALS PO Last administered on 01/12/21 16:24; Start 01/11/21 at 17:00 Fish Oil (Fish Oil) 1,000 mg DAILY PO Last administered on 01/12/21 09:28; Start 01/12/21 at 09:00 Pantoprazole Sodium (Protonix) 40 mg DAILYAC PO Last administered on 01/12/21 06:03; Start 01/12/21 at 07:30 Dexamethasone Sodium Phosphate (Decadron) 4 mg Q6HRS IVP Last administered on 01/12/21 12:04; Start 01/11/21 at 18:00; Stop 01/12/21 at 16:02; Status DC Active Scripts Active Percocet 5-325 Mg Tablet (Oxycodone/Acetaminophen) 1 Each Tablet 1 Tab PO PRN Q6HRS PRN 6 Days Decadron (Dexamethasone) 4 Mg Tablet 1 Tab PO BID 5 Days Reported Tylenol (Acetaminophen) 325 Mg Tablet 2 Tab PO PRN Q4HRS Metformin Hcl 1,000 Mg Tablet 1,000 Mg PO BIDWMEALS Diclofenac Sodium 50 Mg Tablet.dr 1 Tab PO BID Clindamycin Hcl 300 Mg Capsule 300 Mg PO TID Fish Oil 1,000 Mg Softgel ([place]-3 Fatty Acids/Fish Oil) 1 Each Capsule 2 Each PO DAILY Saw [place] 450 mg Capsule (Saw [place] Fruit/Zinc [place]) 1 Each Capsule 2 Each PO DAILY Aspirin 81 Mg Tab.chew 1 Tab PO DAILY Magnesium (Magnesium Oxide) 250 Mg Tablet 1 Tab PO DAILY 30 Days Testosterone 2.5 Gm Gel.packet 2.5 Gm TD DAILY08 Flomax (Tamsulosin Hcl) 0.4 Mg Cap.er.24h 2 Cap PO DAILY Dicyclomine Hcl 20 Mg Tablet 40 Mg PO QID Atorvastatin Calcium 10 Mg Tablet 10 Mg PO HS Montelukast Sodium Tablet (Montelukast Sodium) 10 Mg Tablet 10 Mg PO HS Omeprazole 40 Mg Capsule.dr 40 Mg PO DAILY Avodart (Dutasteride) 0.5 Mg Capsule 1 Cap PO DAILY Vitals/I & O Vital Sign - Last 24 Hours 01/11/21 01/11/21 01/11/21 01/12/21 19:30 23:25 23:43 00:30 Temp 98.2 97.7 98.2 97.7 Pulse 82 76 Resp 18 20 B/P (MAP) 134/72 (92) 154/74 (100) Pulse Ox 94 95 O2 Delivery Room Air Room Air Room Air Room Air 01/12/21 01/12/21 01/12/21 01/12/21 02:50 07:00 09:33 10:05 Temp 97.7 96.9 97.7 96.9 Pulse 70 74 Resp 20 16 B/P (MAP) 155/77 (103) 168/84 (112) Pulse Ox 94 94 O2 Delivery Room Air Room Air Room Air Room Air 01/12/21 01/12/21 01/12/21 01/12/21 11:00 12:04 12:34 13:28 Temp 96.4 96.4 Pulse 79 Resp 16 16 B/P (MAP) 146/71 (96) Pulse Ox 97 O2 Delivery Room Air Room Air Room Air Room Air 01/12/21 01/12/21 01/12/21 13:58 15:00 16:25 Temp 97.5 97.5 Pulse 85 Resp 16 B/P (MAP) 132/65 (87) Pulse Ox 96 O2 Delivery Room Air Room Air Room Air Intake and Output 01/11/21 01/11/21 01/12/21 15:00 23:00 07:00 Intake Total 250 ml 500 ml 0 ml Balance 250 ml 500 ml 0 ml Justifications for Admission Other Justification NAMRATA MOORE MD Jan 12, 2021 16:35
[2021-01-12] MEDS: oxyCODONE IR 5 MG TABLET PO PRN ×2 (17:43→23:14)
[2021-01-12 19:00] VITALS: BP 127/75
[2021-01-12] MEDS: ATORVASTATIN CALCIUM 10 MG TABLET. PO SCH (20:44)
[2021-01-12] MEDS: MONTELUKAST SODIUM 10 MG TABLET. PO SCH (20:44)
[2021-01-12 23:00] VITALS: BP 145/79
[2021-01-13 03:00] VITALS: BP 142/69
[2021-01-13] MEDS: PANTOPRAZOLE 40 MG TABLET.DR. PO SCH (05:58)
[2021-01-13] MEDS: oxyCODONE IR 5 MG TABLET PO PRN ×3 (06:02→14:50)
[2021-01-13 07:15] VITALS: BP 147/71
[2021-01-13] MEDS: metFORMIN 500 MG TABLET PO SCH (08:33)
[2021-01-13] MEDS: ASPIRIN CHEWABLE 81 MG TABLET. PO SCH (08:34)
[2021-01-13] MEDS: OMEGA-3 FATTY ACIDS/FISH OIL 1,000 MG CAPSULE. PO SCH (08:34)
[2021-01-13] MEDS: DICLOFENAC SODIUM 25 MG TABLET.DR PO SCH (08:34)
[2021-01-13] MEDS: MAGNESIUM OXIDE 400 MG TABLET PO SCH (08:34)
[2021-01-13] MEDS: CLINDAMYCIN HCL 150 MG CAPSULE. PO SCH ×2 (08:35→13:49)
[2021-01-13] MEDS: TAMSULOSIN 0.4 MG CAP.ER.24H. PO SCH (08:35)
[2021-01-13] MEDS: DUTASTERIDE 0.5 MG CAPSULE PO SCH (08:35)
[2021-01-13] MEDS: DICYCLOMINE HCL 10 MG CAPSULE PO SCH ×2 (08:35→13:48)
--- NOTE | 2021-01-13 09:29 | PDOC ---
PROGRESS NOTES Date of Service DATE: 01/13/21 TIME: 09:27 Subjective Subjective He admits less neck pain. Objective Objective Vital Signs Date Time Temp Pulse Resp B/P (MAP) Pulse Ox O2 Delivery O2 Flow Rate FiO2 01/13/21 07:15 97.4 69 20 147/71 (96) 96 Room Air 97.4 01/10/21 20:00 97.0 Intake and Output 01/13/21 07:00 Intake Total 1560 ml Balance 1560 ml Intake Oral 1560 ml # Voids 5 Physical Exam Physical Exam He is independent with his mobility and self care and he had soft cervical collar in place. Assessment Assessment Problems Medical Problems: (1) Cervical pain (neck) Status: Acute Plan Plan of Care Agree with plans for trial of cervical epidural steroid injections to help ease his pain. Comment Review of Relevant I have reviewed the following items gallo (where applicable) has been applied. Medications Current Medications Methylprednisolone Sodium Succinate (SOLU-Medrol 125MG VIAL) 125 mg 1X ONCE IV Last administered on 01/10/21at 19:46; Start 01/10/21 at 19:30; Stop 01/10/21 at 19:31; Status DC Fentanyl Citrate (Fentanyl 2ml Vial) 50 mcg 1X ONCE IVP Last administered on 01/10/21at 19:47; Start 01/10/21 at 19:30; Stop 01/10/21 at 19:31; Status DC Orphenadrine Citrate (Norflex) 60 mg 1X ONCE IM Last administered on 01/10/21at 19:46; Start 01/10/21 at 19:30; Stop 01/10/21 at 19:31; Status DC Morphine Sulfate (Morphine Sulfate) 4 mg 1X ONCE IVP Last administered on 01/10/21at 21:24; Start 01/10/21 at 21:00; Stop 01/10/21 at 21:01; Status DC Morphine Sulfate (Morphine Sulfate) 2 mg PRN Q2HR PRN IVP SEVERE PAIN 7-10 Last administered on 01/11/21at 02:07; Start 01/10/21 at 23:00; Stop 01/11/21 at 09:00; Status DC Ondansetron HCl (Zofran) 4 mg 1X ONCE IVP ; Start 01/10/21 at 23:30; Stop 01/10/21 at 23:31; Status DC Morphine Sulfate (Morphine Sulfate) 4 mg PRN Q2HR PRN IVP PAIN Last administered on 01/12/21 16:25; Start 01/11/21 at 09:00 Oxycodone/ Acetaminophen (Percocet 5/325) 1 tab PRN Q4HRS PRN PO SEVERE PAIN Last administered on 01/12/21 13:28; Start 01/11/21 at 13:00; Stop 01/12/21 at 16:31; Status DC Acetaminophen/ Codeine Phosphate (Tylenol #3) 1 tab PRN Q6HRS PRN PO MODERATE PAIN; Start 01/11/21 at 13:00 Acetaminophen (Tylenol) 1,000 mg PRN Q6HRS PRN PO MILD PAIN 1-3; Start 01/11/21 at 13:00 Docusate Sodium (Colace) 100 mg PRN DAILY PRN PO HARD STOOLS Last administered on 01/11/21 15:34; Start 01/11/21 at 15:30 Aspirin (Aspirin Chewable) 81 mg DAILY PO Last administered on 01/13/21 08:34; Start 01/12/21 at 09:00 Atorvastatin Calcium (Lipitor) 10 mg HS PO Last administered on 01/12/21 20:44; Start 01/11/21 at 21:00 Dutasteride (Avodart) 0.5 mg DAILY PO Last administered on 01/13/21 08:35; Start 01/12/21 at 09:00 Montelukast Sodium (Singulair) 10 mg HS PO Last administered on 01/12/21 20:44; Start 01/11/21 at 21:00 Tamsulosin HCl (Flomax) 0.8 mg DAILY PO Last administered on 01/13/21 08:35; Start 01/12/21 at 09:00 Clindamycin HCl (Cleocin) 300 mg TID PO Last administered on 01/13/21 08:35; Start 01/11/21 at 21:00 Diclofenac Sodium (Voltaren) 50 mg BID PO Last administered on 01/13/21 08:34; Start 01/11/21 at 21:00 Dicyclomine HCl (Bentyl) 40 mg QID PO Last administered on 01/13/21 08:35; Start 01/11/21 at 17:00 Magnesium Oxide (Magnesium Oxide) 200 mg DAILY PO Last administered on 01/13/21at 08:34; Start 01/12/21 at 09:00 Metformin HCl (Glucophage) 1,000 mg BIDWMEALS PO Last administered on 01/13/21at 08:33; Start 01/11/21 at 17:00 Fish Oil (Fish Oil) 1,000 mg DAILY PO Last administered on 01/13/21at 08:34; Start 01/12/21 at 09:00 Pantoprazole Sodium (Protonix) 40 mg DAILYAC PO Last administered on 01/13/21at 05:58; Start 01/12/21 at 07:30 Dexamethasone Sodium Phosphate (Decadron) 4 mg Q6HRS IVP Last administered on 01/12/21at 12:04; Start 01/11/21 at 18:00; Stop 01/12/21 at 16:02; Status DC Oxycodone HCl (Roxicodone) 5 mg PRN Q4HRS PRN PO MODERATE PAIN- 2ND CHOICE; Start 01/12/21 at 16:30 Oxycodone HCl (Roxicodone) 10 mg PRN Q4HRS PRN PO SEVERE PAIN Last administered on 01/13/21at 06:02; Start 01/12/21 at 16:30 Active Scripts Active Percocet 5-325 Mg Tablet (Oxycodone/Acetaminophen) 1 Each Tablet 1 Tab PO PRN Q6HRS PRN 6 Days Decadron (Dexamethasone) 4 Mg Tablet 1 Tab PO BID 5 Days Reported Tylenol (Acetaminophen) 325 Mg Tablet 2 Tab PO PRN Q4HRS Metformin Hcl 1,000 Mg Tablet 1,000 Mg PO BIDWMEALS Diclofenac Sodium 50 Mg Tablet.dr 1 Tab PO BID Clindamycin Hcl 300 Mg Capsule 300 Mg PO TID Fish Oil 1,000 Mg Softgel ([place]-3 Fatty Acids/Fish Oil) 1 Each Capsule 2 Each PO DAILY Saw [place] 450 mg Capsule (Saw [place] Fruit/Zinc Picoli) 1 Each Capsule 2 Each PO DAILY Aspirin 81 Mg Tab.chew 1 Tab PO DAILY Magnesium (Magnesium Oxide) 250 Mg Tablet 1 Tab PO DAILY 30 Days Testosterone 2.5 Gm Gel.packet 2.5 Gm TD DAILY08 Flomax (Tamsulosin Hcl) 0.4 Mg Cap.er.24h 2 Cap PO DAILY Dicyclomine Hcl 20 Mg Tablet 40 Mg PO QID Atorvastatin Calcium 10 Mg Tablet 10 Mg PO HS Montelukast Sodium Tablet (Montelukast Sodium) 10 Mg Tablet 10 Mg PO HS Omeprazole 40 Mg Capsule.dr 40 Mg PO DAILY Avodart (Dutasteride) 0.5 Mg Capsule 1 Cap PO DAILY Vitals/I & O Vital Sign - Last 24 Hours 01/12/21 01/12/21 01/12/21 01/12/21 09:33 10:05 11:00 12:04 Temp 96.4 96.4 Pulse 79 Resp 16 B/P (MAP) 146/71 (96) Pulse Ox 97 O2 Delivery Room Air Room Air Room Air Room Air 01/12/21 01/12/21 01/12/21 01/12/21 12:34 13:28 13:58 15:00 Temp 97.5 97.5 Pulse 85 Resp 16 16 B/P (MAP) 132/65 (87) Pulse Ox 96 O2 Delivery Room Air Room Air Room Air Room Air 01/12/21 01/12/21 01/12/21 01/12/21 16:25 16:55 17:43 18:13 Resp 16 18 O2 Delivery Room Air Room Air Room Air Room Air 01/12/21 01/12/21 01/12/21 01/12/21 19:00 20:00 23:00 23:14 Temp 97.8 97.5 97.8 97.5 Pulse 79 76 Resp 20 18 20 B/P (MAP) 127/75 (92) 145/79 (101) Pulse Ox 96 96 O2 Delivery Room Air Room Air Room Air Room Air 01/12/21 01/13/21 01/13/21 01/13/21 23:44 03:00 06:02 06:32 Temp 97.7 97.7 Pulse 70 Resp 20 18 20 B/P (MAP) 142/69 (93) Pulse Ox 96 99 99 O2 Delivery Room Air Room Air Room Air Room Air 01/13/21 07:15 Temp 97.4 97.4 Pulse 69 Resp 20 B/P (MAP) 147/71 (96) Pulse Ox 96 O2 Delivery Room Air Intake and Output 01/12/21 01/12/21 01/13/21 15:00 23:00 07:00 Intake Total 720 ml 600 ml 240 ml Balance 720 ml 600 ml 240 ml Justifications for Admission Other Justification ROSELYN GRIGSBY MD Jan 13, 2021 09:29
--- NOTE | 2021-01-13 10:37 | NUR ---
SW following. Discussed with RN, pt from home with spouse, room air, regular diet. Pt wanting to go home. RN advised no SW needs, anticipates discharge home today. SW will continue to follow.
[2021-01-13 11:06] VITALS: BP 153/67
--- NOTE | 2021-01-13 12:56 | PDOC ---
[employer] PROGRESS NOTE Date of Service DOS: DATE: 01/13/21 TIME: 12:55 Chief Complaint Chief Complaint LATE ENTRY, pt seen 01/12, had planned to discharge neck pain, cervical, DJD and arthritis, and poor alignment Dm2 htn BPH History of Present Illness History of Present Illness MR. Coyne is a 70 year old male admit with left neck pain, worse over weeks, started in October and he has been seeking child day care center worker. He has had an MRI done, at [facility]. Thought this was initially due to dental caries and after having a root canal on 01/10/2021 and laying in the dental chair for several hours his pain yet so severe he was unable to make his primary care appointment to review the MRI results and came to the ED instead. He states that his chiropractor said that the MRI is just showing some arthritis. He has only been taking Voltaren tablets and recently ibuprofen for his pain. Initial pain was 9 out of 10 Patient denies fever, dizziness but states he does have a headache that goes up the right side of his head. He denies stiffness of his neck, vision change, numbness or tingling, focal weakness, injury. Patient cannot sit still and is standing up and sitting down and rolling from side to side in the bed because he cannot get comfortable. Pain resolved with IV morphine which she is requesting he says oral Percocet did not help quite as much and after taking steroids he was up all night. Currently rating his pain at a 4 out of 10. Tentative plan to do steroids and outpatient epidural steroid injection per neurosurgery. No weakness no numbness or tingling. MRI report not available to me but there is definitely C5-6 C6-7 anterior disc bulging right greater than left. Vitals/I&O Vitals/I&O: Vital Signs Date Time Temp Pulse Resp B/P (MAP) Pulse Ox O2 Delivery O2 Flow Rate FiO2 01/13/21 11:06 97.4 80 18 153/67 (95) 97 Room Air 97.4 I & O 01/12/21 01/12/21 01/13/21 14:59 22:59 06:59 Intake Total 720 ml 240 ml 600 ml Balance 720 ml 240 ml 600 ml Physical Exam General: Alert, Oriented X3, Cooperative Heart: Regular rate Lungs: Clear Extremities: No cyanosis, Normal pulses Skin: No breakdown Review of Systems Review of Systems: pain only Assessment and Plan Assessmemt and Plan Problems Medical Problems: (1) Cervical pain (neck) Status: Acute Comment Review of Relevant I have reviewed the following items gallo (where applicable) has been applied. Medications: Current Medications Medications (Trade) Dose Ordered Sig/[place] Route PRN Reason Start Time Stop Time Status Last Admin Dose Admin Oxycodone HCl (Roxicodone) 10 mg PRN Q4HRS PRN PO SEVERE PAIN 01/12/21 16:30 01/13/21 06:02 Justifications for Admission Other Justification ION TAYLOR MD Jan 13, 2021 12:56
--- NOTE | 2021-01-13 12:58 | PDOC3 ---
Discharge Summary Visit Information Date of Admission: Jan 10, 2021 Date of Discharge: Jan 13, 2021 Final Diagnosis neck pain, cervical, DJD and arthritis, and poor alignment Dm2 htn BPH Problems Medical Problems: (1) Cervical pain (neck) Status: Acute Brief Hospital Course Allergies Allergies Coded Allergies Type Severity Reaction Last Updated Verified No Known Drug Allergies 01/10/21 No Vital Signs Vital Signs Date Time Temp Pulse Resp B/P (MAP) Pulse Ox O2 Delivery O2 Flow Rate FiO2 01/13/21 11:06 97.4 80 18 153/67 (95) 97 Room Air 97.4 Brief Hospital Course MR. 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 He has had an MRI done, at [facility]. CT here reviewed with Dr. castellano, And neurosurg pain req. IV pain meds 2 days, better wtih soft collar, Steriods for decrease swelling Discharge Information Condition at Discharge: Improved Follow Up: Weeks Disposition/Orders: D/C to Home Scheduled Acetaminophen (Tylenol) 325 Mg Tablet, 2 TAB PO PRN Q4HRS for pain, #30 (Rep orted) Entered as Reported by: KIA SHRESTHA on 01/11/211133 Last Taken: Unknown Dose on 01/10/21 Last Action: New Order on 01/11/211133 by KIA SHRESTHA Aspirin (Aspirin) 81 Mg Tab.chew, 1 TAB PO DAILY for heart health, #30 Ref 3 (Reported) Entered as Reported by: KIA SHRESTHA on 01/11/211133 Last Taken: Unknown Dose on 01/10/21 Last Action: Continued on 01/11/21 1556 by KIA SHRESTHA Atorvastatin Calcium (Atorvastatin Calcium) 10 Mg Tablet, 10 MG PO HS for FOR CHOLESTEROL, #30 Ref 0 (Reported) Entered as Reported by: KIA SHRESTHA on 01/11/211133 Last Taken: Unknown Dose on 01/10/21 Last Action: Continued on 01/11/21 1556 by KIA SHRESTHA Clindamycin Hcl (Clindamycin Hcl) 300 Mg Capsule, 300 MG PO TID for tooth abscess, (Reported) Entered as Reported by: KIA SHRESTHA on 01/11/211133 Last Taken: Unknown Dose on 01/10/21 Last Action: Converted on 01/11/211555 by KIA SHRESTHA Dexamethasone (Decadron) 4 Mg Tablet, 1 TAB PO BID for Cervicalgia for 5 Days, #10 Ref 0 Prescribed by: JHOAN ROSENBERG MD on 01/12/21 1112 Diclofenac Sodium (Diclofenac Sodium) 50 Mg Tablet.dr, 1 TAB PO BID for neck pain, #60 Ref 1 (Reported) Entered as Reported by: KIA SHRESTHA on 01/11/211133 Last Taken: Unknown Dose on 01/10/21 Last Action: Converted on 01/11/211555 by KIA SHRESTHA Dicyclomine Hcl (Dicyclomine Hcl) 20 Mg Tablet, 40 MG PO QID for abdominal cramping, (Reported) Entered as Reported by: KIA SHRESTHA on 01/11/211133 Last Taken: Unknown Dose on 01/10/21 Last Action: Converted on 01/11/211555 by KIA SHRESTHA Dutasteride (Avodart) 0.5 Mg Capsule, 1 CAP PO DAILY for urinary retention, #30 Ref 5 (Reported) Entered as Reported by: KIA SHRESTHA on 01/11/211133 Last Taken: Unknown Dose on 01/10/21 Last Action: Continued on 01/11/211555 by KIA SHRESTHA Magnesium Oxide (Magnesium) 250 Mg Tablet, 1 TAB PO DAILY for supplement for 30 Days, #30 Ref 0 (Reported) Entered as Reported by: KIA SHRESTHA on 01/11/211133 Last Taken: Unknown Dose on 01/10/21 Last Action: Converted on 01/11/211555 by KIA SHRESTHA Metformin Hcl (Metformin Hcl) 1,000 Mg Tablet, 1,000 MG PO BIDWMEALS for diabetes, (Reported) Entered as Reported by: KIA SHRESTHA on 01/11/211133 Last Taken: Unknown Dose on 01/10/21 Last Action: Converted on 01/11/211555 by KIA SHRESTHA Montelukast Sodium (Montelukast Sodium Tablet ) 10 Mg Tablet, 10 MG PO HS for FOR ASTHMA, Ref 0 (Reported) Entered as Reported by: KIA SHRESTHA on 01/11/211133 Last Taken: Unknown Dose on 01/10/21 Last Action: Continued on 01/11/211555 by KIA SHRESTHA [place]-3 Fatty Acids/Fish Oil (Fish Oil 1,000 Mg Softgel) 1 Each Capsule, 2 EACH PO DAILY for heart health, (Reported) Entered as Reported by: KIA SHRESTHA on 01/11/211133 Last Taken: Unknown Dose on 01/10/21 Last Action: Converted on 01/11/211555 by KIA SHRESTHA Omeprazole (Omeprazole) 40 Mg Capsule.dr, 40 MG PO DAILY for GERD, (Reported) Entered as Reported by: KIA SHRESTHA on 01/11/211133 Last Taken: Unknown Dose on 01/10/21 Last Action: Converted on 01/11/211555 by KIA SHRESTHA Saw [place] Fruit/Zinc Picoli (Saw [place] 450 mg Capsule) 1 Each Capsule, 2 EACH PO DAILY for supplement, (Reported) Entered as Reported by: KIA SHRESTHA on 01/11/211133 Last Taken: Unknown Dose on 01/10/21 Last Action: New Order on 01/11/211133 by KIA SHRESTHA Tamsulosin Hcl (Flomax) 0.4 Mg Cap.er.24h, 2 CAP PO DAILY for urinary retention, #90 Ref 3 (Reported) Entered as Reported by: KIA SHRESTHA on 01/11/211133 Last Taken: Unknown Dose on 01/10/21 Last Action: Continued on 01/11/211555 by KIA SHRESTHA Testosterone (Testosterone) 2.5 Gm Gel.packet, 2.5 GM TD DAILY08 for supplement, (Reported) Entered as Reported by: KIA SHRESTHA on 01/11/211133 Last Taken: Unknown Dose on 01/10/21 Last Action: New Order on 01/11/211133 by KIA SHRESTHA Scheduled PRN Oxycodone/Apap 5-325 (Percocet 5-325 Mg Tablet ) 1 Each Tablet, 1 TAB PO PRN Q6HRS PRN for PAIN for 6 Days, #15 Ref 0 Prescribed by: JHOAN ROSENBERG MD on 01/12/21 1113 Patient Instructions Patient Instructions Gary mas face to face discussed plan with his 24 minutes Justicifation of Admission Dx: Justifications for Admission: Justification of Admission Dx: ION Eli MD Jan 13, 2021 12:58
--- NOTE | 2021-01-13 14:47 | PDOC ---
PROGRESS NOTES Date of Service DATE: 01/13/21 TIME: 14:46 Subjective Subjective up ambulating in the room pain improving wearing soft collar Objective Objective Vital Signs Date Time Temp Pulse Resp B/P (MAP) Pulse Ox O2 Delivery O2 Flow Rate FiO2 01/13/21 11:06 97.4 80 18 153/67 (95) 97 Room Air 97.4 01/10/21 20:00 97.0 Intake and Output 01/13/21 07:00 Intake Total 1560 ml Balance 1560 ml Intake Oral 1560 ml # Voids 5 Physical Exam General: Alert, Oriented X3, Cooperative Neck: Other (IGNACIO) Neuro: Normal speech Assessment Assessment Problems Medical Problems: (1) Cervical pain (neck) Status: Acute Plan Plan of Care Plan for dc will make arrangements for KASSANDRA as OP and follow up after Comment Review of Relevant I have reviewed the following items gallo (where applicable) has been applied. Medications Current Medications Methylprednisolone Sodium Succinate (SOLU-Medrol 125MG VIAL) 125 mg 1X ONCE IV Last administered on 01/10/21at 19:46; Start 01/10/21 at 19:30; Stop 01/10/21 at 19:31; Status DC Fentanyl Citrate (Fentanyl 2ml Vial) 50 mcg 1X ONCE IVP Last administered on 01/10/21at 19:47; Start 01/10/21 at 19:30; Stop 01/10/21 at 19:31; Status DC Orphenadrine Citrate (Norflex) 60 mg 1X ONCE IM Last administered on 01/10/21at 19:46; Start 01/10/21 at 19:30; Stop 01/10/21 at 19:31; Status DC Morphine Sulfate (Morphine Sulfate) 4 mg 1X ONCE IVP Last administered on 01/10/21at 21:24; Start 01/10/21 at 21:00; Stop 01/10/21 at 21:01; Status DC Morphine Sulfate (Morphine Sulfate) 2 mg PRN Q2HR PRN IVP SEVERE PAIN 7-10 Last administered on 01/11/21at 02:07; Start 01/10/21 at 23:00; Stop 01/11/21 at 09:00; Status DC Ondansetron HCl (Zofran) 4 mg 1X ONCE IVP ; Start 01/10/21 at 23:30; Stop 01/10/21 at 23:31; Status DC Morphine Sulfate (Morphine Sulfate) 4 mg PRN Q2HR PRN IVP PAIN Last administered on 01/12/21 16:25; Start 01/11/21 at 09:00 Oxycodone/ Acetaminophen (Percocet 5/325) 1 tab PRN Q4HRS PRN PO SEVERE PAIN Last administered on 01/12/21 13:28; Start 01/11/21 at 13:00; Stop 01/12/21 at 16:31; Status DC Acetaminophen/ Codeine Phosphate (Tylenol #3) 1 tab PRN Q6HRS PRN PO MODERATE PAIN; Start 01/11/21 at 13:00 Acetaminophen (Tylenol) 1,000 mg PRN Q6HRS PRN PO MILD PAIN 1-3; Start 01/11/21 at 13:00 Docusate Sodium (Colace) 100 mg PRN DAILY PRN PO HARD STOOLS Last administered on 01/11/21 15:34; Start 01/11/21 at 15:30 Aspirin (Aspirin Chewable) 81 mg DAILY PO Last administered on 01/13/21 08:34; Start 01/12/21 at 09:00 Atorvastatin Calcium (Lipitor) 10 mg HS PO Last administered on 01/12/21 20: 44; Start 01/11/21 at 21:00 Dutasteride (Avodart) 0.5 mg DAILY PO Last administered on 01/13/21 08:35; Start 01/12/21 at 09:00 Montelukast Sodium (Singulair) 10 mg HS PO Last administered on 01/12/21at 20:44; Start 01/11/21 at 21:00 Tamsulosin HCl (Flomax) 0.8 mg DAILY PO Last administered on 01/13/21 08:35; Start 01/12/21 at 09:00 Clindamycin HCl (Cleocin) 300 mg TID PO Last administered on 01/13/21 13:49; Start 01/11/21 at 21:00 Diclofenac Sodium (Voltaren) 50 mg BID PO Last administered on 01/13/21 08:34; Start 01/11/21 at 21:00 Dicyclomine HCl (Bentyl) 40 mg QID PO Last administered on 01/13/21 13:48; Start 01/11/21 at 17:00 Magnesium Oxide (Magnesium Oxide) 200 mg DAILY PO Last administered on 01/13/21at 08:34; Start 01/12/21 at 09:00 Metformin HCl (Glucophage) 1,000 mg BIDWMEALS PO Last administered on 01/13/21at 08:33; Start 01/11/21 at 17:00 Fish Oil (Fish Oil) 1,000 mg DAILY PO Last administered on 01/13/21at 08:34; Start 01/12/21 at 09:00 Pantoprazole Sodium (Protonix) 40 mg DAILYAC PO Last administered on 01/13/21at 05:58; Start 01/12/21 at 07:30 Dexamethasone Sodium Phosphate (Decadron) 4 mg Q6HRS IVP Last administered on 01/12/21at 12:04; Start 01/11/21 at 18:00; Stop 01/12/21 at 16:02; Status DC Oxycodone HCl (Roxicodone) 5 mg PRN Q4HRS PRN PO MODERATE PAIN- 2ND CHOICE Last administered on 01/13/21at 13:49; Start 01/12/21 at 16:30 Oxycodone HCl (Roxicodone) 10 mg PRN Q4HRS PRN PO SEVERE PAIN Last administered on 01/13/21at 06:02; Start 01/12/21 at 16:30 Lactobacillus Rhamnosus (Culturelle) 1 cap BID PO ; Start 01/13/21 at 21:00 Active Scripts Active Percocet 5-325 Mg Tablet (Oxycodone/Acetaminophen) 1 Each Tablet 1 Tab PO PRN Q6HRS PRN 6 Days Decadron (Dexamethasone) 4 Mg Tablet 1 Tab PO BID 5 Days Reported Tylenol (Acetaminophen) 325 Mg Tablet 2 Tab PO PRN Q4HRS Metformin Hcl 1,000 Mg Tablet 1,000 Mg PO BIDWMEALS Diclofenac Sodium 50 Mg Tablet.dr 1 Tab PO BID Clindamycin Hcl 300 Mg Capsule 300 Mg PO TID Fish Oil 1,000 Mg Softgel ([place]-3 Fatty Acids/Fish Oil) 1 Each Capsule 2 Each PO DAILY Saw [place] 450 mg Capsule (Saw [place] Fruit/Zinc Picoli) 1 Each Capsule 2 Each PO DAILY Aspirin 81 Mg Tab.chew 1 Tab PO DAILY Magnesium (Magnesium Oxide) 250 Mg Tablet 1 Tab PO DAILY 30 Days Testosterone 2.5 Gm Gel.packet 2.5 Gm TD DAILY08 Flomax (Tamsulosin Hcl) 0.4 Mg Cap.er.24h 2 Cap PO DAILY Dicyclomine Hcl 20 Mg Tablet 40 Mg PO QID Atorvastatin Calcium 10 Mg Tablet 10 Mg PO HS Montelukast Sodium Tablet (Montelukast Sodium) 10 Mg Tablet 10 Mg PO HS Omeprazole 40 Mg Capsule.dr 40 Mg PO DAILY Avodart (Dutasteride) 0.5 Mg Capsule 1 Cap PO DAILY Vitals/I & O Vital Sign - Last 24 Hours 01/12/21 01/12/21 01/12/21 01/12/21 15:00 16:25 16:55 17:43 Temp 97.5 97.5 Pulse 85 Resp 16 18 B/P (MAP) 132/65 (87) Pulse Ox 96 O2 Delivery Room Air Room Air Room Air Room Air 01/12/21 01/12/21 01/12/21 01/12/21 18:13 19:00 20:00 23:00 Temp 97.8 97.5 97.8 97.5 Pulse 79 76 Resp 20 18 B/P (MAP) 127/75 (92) 145/79 (101) Pulse Ox 96 96 O2 Delivery Room Air Room Air Room Air Room Air 01/12/21 01/12/21 01/13/21 01/13/21 23:14 23:44 03:00 06:02 Temp 97.7 97.7 Pulse 70 Resp 20 20 18 B/P (MAP) 142/69 (93) Pulse Ox 96 99 99 O2 Delivery Room Air Room Air Room Air Room Air 01/13/21 01/13/21 01/13/21 01/13/21 06:32 07:15 08:00 11:06 Temp 97.4 97.4 97.4 97.4 Pulse 69 80 Resp 20 20 18 B/P (MAP) 147/71 (96) 153/67 (95) Pulse Ox 96 97 O2 Delivery Room Air Room Air Room Air Room Air Intake and Output 01/12/21 01/12/21 01/13/21 15:00 23:00 07:00 Intake Total 720 ml 600 ml 240 ml Balance 720 ml 600 ml 240 ml Justifications for Admission Other Justification NAMRATA MOORE MD Jan 13, 2021 14:47
--- NOTE | 2021-01-13 14:50 | DISCH ---
DISCHARGE INSTRUCTIONS Condition on Discharge Condition on Discharge: Stable Activity After Discharge Activity Instructions for Disc: Activity as tolerated, Avoid exertion Other activity instructions: soft cervical collar for comfort Lifting Instructions after Dis: No heavy lifting, No pulling or pushing, Do not lift >10 pounds Driving Instructions after Dis: Do not drive Weight Bearing Status after Di: No restrictions Diet after Discharge Diet after Discharge: Regular Diet Texture: Regular Liquid Texture: Thin Liquid Swallowing Supervision: None needed Contacting the DRKayode after DC Call your doctor for: Concerns you may have Follow-Up Follow up with: Dr. Moore [phone] Follow Up With: Dr. Florez [phone] NAMRATA MOORE MD Jan 13, 2021 14:50
[2021-01-13 15:16] VITALS: BP 142/69
--- NOTE | 2021-01-13 15:49 | NUR ---
Patient provided discharge instructions and follow up care. IV removed and patient taken by wheelchair to car with family.
[2021-01-13] MEDS ORDERED: LACTOBACILLUS RHAMNOSUS GG 1 CAPSULE. PO SCH (21:00)
[2021-01-23] MEDS ORDERED: OXYC1TAB15 PO (10:05)
== END 2021-01-13 15:30 | disposition home or self-care (01) | DRG 552 ==
LOC: ER 16:53 → 4 NORTH 22:59 → OBSVTOIN 01-12 16:27
PROVIDERS: ADMIT Internal Medicine; ATTEND Internal Medicine
DX: M50.30 Other cervical disc degeneration, unspecified cervical region (principal); E11.42 Type 2 diabetes mellitus with diabetic polyneuropathy; G89.29 Other chronic pain; I10 Essential (primary) hypertension; K08.89 Other specified disorders of teeth and supporting structures; N40.0 Benign prostatic hyperplasia without lower urinary tract symptoms; Z83.3 Family history of diabetes mellitus; K21.9 Gastro-esophageal reflux disease without esophagitis
CPT/HCPCS: 36415; 70450; 72125; 80053; 85007; 85025; 96372; 96374; 96375; G0378; G0379; J1100; J2270; J2360; J2930; J3010; 97110-GP; 97530-GP; 99285-25

== ENCOUNTER → 2021-01-19 | Outpatient (CLI) | payer OTHER ==
[2021-01-13 15:16] VITALS: BP 142/69
[~2021-01-19] MED LIST: ACET325T9 PO; ASPI-630 PO; ATOR10TA60 PO; CLIN-94 PO; DEXA4TAB63 PO; DICL50TA4 PO; DICY20TA3 PO; DUTA0.5C PO; MAGN250T10 PO; METF10007 PO; MONT10TA49 PO; OMEG1CAP27 PO; OMEP40CA7 PO; OXYC1TAB15 PO; SAW1CAPS8 PO; TAMS0.4C97 PO; [UNRECOGNIZED DRUG - CODE] TD
--- NOTE | 2021-01-19 12:37 | PDOC1 ---
INITIAL PAIN CONSULT DATE OF SERVICE: DOS: DATE: 01/19/21 TIME: 12:28 CHIEF COMPLAINT: Chief Complaint: Neck and right upper extremity pain HISTORY OF PRESENT ILLNESS: 70-year-old male presents with history of pain base the neck and right upper extremity for approximately 3 months not result of any specific injury activities were but getting worse over time the base the neck rating the right shoulder right side of the face and ear as well as the upper posterior scapular region anterior pectoral region into the right upper extremity, lateral shoulder posterior shoulder and into the triceps and forearm both anteriorly and posteriorly. Patient reports pain is constant sharp stabbing throbbing shooting can be aching in the base the neck as well. Worse with repetitive motions with the right upper extremity also lifting items reaching over his head with his right hand awaken him from sleep at least 2-3 times a night does not affect his ability to walk or function except for reaching with weightbearing in the right upper extremity. Patient rates his disability rating 0-10 10 being the worst is a 3 with family home responsibilities 9 with recreation social activity 5 with occupation and sexual behavior 0 self-care and 8 with life support activities especially disturbing his sleep. Patient has been doing strengthening exercises which he learned from his chiropractor and is still undergoing chiropractic treatment which does decrease the pain but not long-lasting. Patient is taking ibuprofen as well as oxycodone the oxycodone does decrease the pain have the ibuprofen did not. Patient did have a MRI of the cervical spine showing moderate to severe cervical spondylosis with disc osteophyte complex throughout and severe right and moderate left neuroforaminal narrowing C6-7 severe left facet arthropathy mild right and severe left neuroforaminal narrowing C5-6 with mild right and severe left facet arthropathy and moderate right and severe left neuroforaminal narrowing at C4-5. PAST MEDICAL HISTORY: PMH: Hypertension type 2 diabetes, arthritis, irritable bowel syndrome PREVIOUS SURGERIES: Past Surgical Hx: Cataract extraction, mastectomy on the left, hemorrhoid surgery CURRENT MEDICATIONS: Current Meds: Active Scripts Medications Dose Route/Sig Max Daily Dose Days Date Category Percocet 5-325 Mg Tablet (Oxycodone/Acetaminophen) 1 Each Tablet 1 Tab PO PRN Q6HRS PRN 6 01/12/21 Rx Tylenol (Acetaminophen) 325 Mg Tablet 2 Tab PO PRN Q4HRS 01/11/21 Reported Metformin Hcl 1,000 Mg Tablet 1,000 Mg PO BIDWMEALS 01/11/21 Reported Diclofenac Sodium 50 Mg Tablet.dr 1 Tab PO BID 01/11/21 Reported Fish Oil 1,000 Mg Softgel ([place]-3 Fatty Acids/Fish Oil) 1 Each Capsule 2 Each PO DAILY 01/11/21 Reported [place] 450 mg Capsule ([place] Fruit/Zinc [place]) 1 Each Capsule 2 Each PO DAILY 01/11/21 Reported Aspirin 81 Mg Tab.chew 1 Tab PO DAILY 01/11/21 Reported Magnesium (Magnesium Oxide) 250 Mg Tablet 1 Tab PO DAILY 30 01/11/21 Reported Testosterone 2.5 Gm Gel.packet 2.5 Gm TD DAILY08 01/11/21 Reported Flomax (Tamsulosin Hcl) 0.4 Mg Cap.er.24h 2 Cap PO DAILY 01/11/21 Reported Dicyclomine Hcl 20 Mg Tablet 40 Mg PO QID 01/11/21 Reported Atorvastatin Calcium 10 Mg Tablet 10 Mg PO HS 01/11/21 Reported Montelukast Sodium Tablet (Montelukast Sodium) 10 Mg Tablet 10 Mg PO HS 01/11/21 Reported Omeprazole 40 Mg Capsule.dr 40 Mg PO DAILY 01/11/21 Reported Avodart (Dutasteride) 0.5 Mg Capsule 1 Cap PO DAILY 01/11/21 Reported ALLERGIES; Allergies: Coded Allergies: No Known Drug Allergies (Unverified , 01/10/21) FAMILY HISTORY: Family Hx: No major medical problems or conditions that he is aware of SOCIAL HISTORY: Social Hx: Patient drinks alcohol very rarely does not smoke says any illegal illicit recreational drugs is lives with his spouse lives locally in [facility]. REVIEW OF SYSTEMS: ROS: Positive for those items mentioned in history of present illness, all systems are reviewed, otherwise negative ,and are complete full and well-documented on patient's chart. PHYSICAL EXAM: VS: Blood pressure is 121/87 pulse 96 respirations 18 temperature is 98.2 F height 5 feet 5 inches weight is 152 pounds PE: PHYSICAL EXAMINATION: GENERAL: The patient is awake, alert, oriented, appropriate, very pleasant in demeanor HEENT: Shows normocephalic, atraumatic. Extraocular movements are intact and symmetrical. Oral cavity: Mucous membranes moist and pink. Dentition is i ntact. NECK: Shows anterior throat supple without palpable lymphadenopathy noted. Swallow reflex symmetrical. CHEST: Shows normal on inspection. Breath sounds are clear bilaterally, distant but no rales or rhonchi auscultated. HEART: Shows S1, S2 clear. No murmurs auscultated. ABDOMEN: Soft, nontender, nondistended, obese. No palpable organomegaly is noted. No rebound or guarding demonstrated. BACK: Shows spine grossly in the midline. Normal-appearing cervical lordotic curvature. Cervical paraspinous muscles show symmetrical with inspection, on palpation some moderate tenderness diffusely in the inferior aspect cervical paraspinous muscle slightly more on the right than the left but without asymmetry atrophy hypertrophy and without trigger points. Patient shows good rotation motion cervical spine with some moderate tenderness with right lateral rotation as well as extension but not with forward flexion or left lateral rotation. There is slightly increased thoracic kyphosis, some minor flattening of the lumbar lordotic curvature. EXTREMITIES: Upper extremities show deep tendon reflexes at 2+ tendon reflexes biceps and triceps tendons. Motor exam is 4 on a scale of 5 with right application developer manager, biceps and tricep flexion and 5/5 on the left. Peripheral pulses are 2+ radial. No peripheral edema is noted bilaterally. Upper extremities are warm and dry to touch, equal in color and appearance. Shoulder shrug is strong and intact without loss of strength on resistance as is abduction of the shoulders 90 degrees bilaterally. SKIN: Shows warm and dry, good turgor. No edema. No sores, rashes or bruising throughout. IMPRESSION: Impression: 70-year-old male with approximate 3-month history increasing pain base of neck right upper extremity radicular fashion MRI scan cervical spine as noted Arthritis Hypertension Type 2 diabetes Plan: Options were discussed with patient including conservative medical management continued physical therapies and interventional techniques. Patient has clinical C6-7 dermatological radiculopathy on the right. This patient is doing stretching strength exercises and chiropractic treatment currently and oral analgesics without significant reduction in pain, he would like to pursue interventional techniques. We discussed a cervical epidural steroid injection using descriptions was anatomical models to describe the procedure. Patient wi ll wait for preauthorization with his insurance provider, once this is obtained we will plan him return for cervical epidural steroid injection translaminar approach C6-7 level with fluoroscopic guidance. LINETTE HELMS MD Jan 19, 2021 12:37
== END | disposition home or self-care (01) ==
LOC: PNCL 09:39
PROVIDERS: ATTEND Anesthesiology
DX: M54.2 Cervicalgia (principal); M79.601 Pain in right arm; I10 Essential (primary) hypertension; E11.9 Type 2 diabetes mellitus without complications; M19.90 Unspecified osteoarthritis, unspecified site; N40.0 Benign prostatic hyperplasia without lower urinary tract symptoms; Z79.82 Long term (current) use of aspirin; Z79.84 Long term (current) use of oral hypoglycemic drugs; Z79.899 Other long term (current) drug therapy; Z98.890 Other specified postprocedural states; Z72.89 Other problems related to lifestyle
CPT/HCPCS: G0463

== ENCOUNTER → 2021-01-23 | Outpatient (CLI) | payer OTHER ==
[2021-01-13 15:16] VITALS: BP 142/69
[~2021-01-23] MED LIST changes: +DICY20TA PO; -DICY20TA3 PO; +IOHEXOL 180 MG/ML 10 ML VIAL. ONE; +OXYC1TAB19 PO; +methylPREDNISolone ACETATE 40 MG/ML VIAL. ONE; +methylPREDNISolone ACETATE 80 MG/ML VIAL. ONE
--- NOTE | 2021-01-23 10:02 | PDOC ---
Progress Note - Pain Clinic Date of Service: DOS: DATE: 01/23/21 TIME: 09:58 Diagnosis: Dx: Cervical radiculopathy with cervical degenerative disease and cervical spinal stenosis History or Present Illness: HPI: 70-year-old male with complaints of pain base the neck and right upper extremity with radiation of the right shoulder and arm with repetitive motions lifting weightbearing reaching forward and reaching over his head with his right hand patient reports is aching in the neck as sharp at times in the arm and shoulder tight at times as well and shooting in the right arm patient reports can be constant stabbing with activity wakes him from sleep at least every 4 hours at night patient reports no loss of motor function but significant fatigability the right shoulder and upper extremity patient reports pain is a 7 on scale 10 is worse over the past week 6 on average 5 its least and is today. Patient reports no new motor deficits no bowel or bladder incontinence. Physical Exam: VS: Blood pressure is 152/78 pulse 86 respirations 18 temperature 98.6 F height 5 feet 5 inches weight 157 pounds PE: PHYSICAL EXAMINATION: GENERAL: The patient is awake, alert, oriented, appropriate, very pleasant demeanor HEENT: Shows normocephalic, atraumatic. Extraocular movements are intact and symmetrical. NECK: Shows anterior throat supple without palpable lymphadenopathy noted. Swallow reflex symmetrical. CHEST: Shows normal on inspection. Breath sounds are clear bilaterally. HEART: Shows S1, S2 clear. No murmurs auscultated. ABDOMEN: Soft, nontender, nondistended, obese. No palpable organomegaly is noted. BACK: Shows spine grossly in the midline. Normal-appearing cervical lordotic curvature. Cervical paraspinous muscles show symmetrical inspection, on palpation some moderate tenderness diffusely in the inferior aspect cervical paraspinous muscles on the right than the left without significant radiation without trigger points. Patient shows good rotation motion cervical spine both laterally as well as extension flexion without significant limitation. There is slightly increased thoracic kyphosis, some minor flattening of the lumbar lordotic curvature. EXTREMITIES: Upper extremities show deep tendon reflexes 2+ in the patellar and tendo calcaneus tendons. Motor exam is 4 on a scale of 5 with right dorsiflexion, extension, quadriceps and hamstring flexion and 5/5 on the left. Peripheral pulses are 2+ posterior tibial. No peripheral edema is noted bilaterally. Upper extremities are warm and dry to touch, equal in color and appearance. SKIN: Shows warm and dry, good turgor. No edema. No sores, rashes or bruising throughout. Procedure: Procedure: Options were discussed with the patient. Patient chart was reviewed as his current medication regimen updated current view systems updated today as well. We will proceed with a cervical epidural steroid injection today with fluoroscopic guidance. Risks were discussed including but not limited to: Bl eeding, infection, possibility of epidural hematoma and subsequent neurological compromise, dural puncture, headaches, spinal cord and/or nerve damage, side effects of steroid medication, and poor results regarding pain control. Patient understands and wished to proceed. Patient will return to clinic in approximately 2 weeks for follow-up, was counseled return appointment, activity level, and side effects aware of Medication Injected: Med Injected: Procedure cervical epidural steroid injection at the C6-7 level, using local anesthetic under sterile prep and drape using C-arm fluoroscopic guidance under local anesthesia medications injected ;120 mg Depo-Medrol +5 mL normal saline and 2 mL contrast; condition at discharge is stable patient tolerated procedure well. and had no complications Condition at Discharge: Condition at Discharge: Condition at discharge stable, patient tolerated the procedure well and had no complications. LINETTE HELMS MD Jan 23, 2021 10:02
--- NOTE | 2021-01-23 10:03 | PDOC4 ---
Procedure Note: ICD 10 Code: ICD 10 Code: M54.12 M 48.02 M50.30 Procedure Note: Patient was consented for cervical epidural steroid injection with fluoroscopic guidance. Risks were discussed including but not limited to: Bleeding, infection, possibility of epidural hematoma and subsequent neurological compromise, dural puncture, headaches, spinal cord and/or nerve damage, side effects of steroid medication, and poor results regarding pain control. Patient understands and wished to proceed. Procedure cervical epidural steroid injection at the C6-7 level, using local anesthetic under sterile prep and drape using C-arm fluoroscopic guidance under local anesthesia medications injected ;120 mg Depo-Medrol +5 mL normal saline and 2 mL contrast; condition at discharge is stable patient tolerated procedure well. and had no complications LINETTE HELMS MD Jan 23, 2021 10:03
== END | disposition home or self-care (01) ==
LOC: PNCL 08:58
PROVIDERS: ATTEND Anesthesiology
DX: M50.10 Cervical disc disorder with radiculopathy, unspecified cervical region (principal); M48.02 Spinal stenosis, cervical region; I10 Essential (primary) hypertension; E11.9 Type 2 diabetes mellitus without complications; N40.0 Benign prostatic hyperplasia without lower urinary tract symptoms; Z79.82 Long term (current) use of aspirin; Z79.84 Long term (current) use of oral hypoglycemic drugs; Z79.899 Other long term (current) drug therapy; Z98.890 Other specified postprocedural states; Z72.89 Other problems related to lifestyle
CPT/HCPCS: 62321; J1030; J1040; Q9965

== ENCOUNTER → 2021-02-07 | Outpatient (CLI) | payer OTHER ==
[2021-01-13 15:16] VITALS: BP 142/69
[~2021-02-07] MED LIST changes: -IOHEXOL 180 MG/ML 10 ML VIAL. ONE; -methylPREDNISolone ACETATE 40 MG/ML VIAL. ONE; -methylPREDNISolone ACETATE 80 MG/ML VIAL. ONE
--- NOTE | 2021-02-07 10:03 | PDOC ---
Progress Note - Pain Clinic Date of Service: DOS: DATE: 02/07/21 TIME: 09:59 Diagnosis: Dx: Cervical radiculopathy with cervical degenerative disease and cervical spinal stenosis History or Present Illness: HPI: 70-year-old male returns for follow-up status post cervical epidural steroid injection x1. Patient reports about 75% improvement initially but now about 50% overall after the last 2 weeks patient reports pain is returning base the neck and shoulder on the right side radiating the right upper extremity right should er posterior triceps into the biceps as well as into the forearm and hand especially the thumb patient reports is an 8 on scale 10 is worst over the past week 7 on average 6 at its least and is a 6 today patient reports is worse with repetitive motions weightbearing disturbing her from sleep initially was doing much better with distance walking doing household activities travel with greater ease and comfort and sleeping much better now the pain is returning over the past few days patient reports aching sharp shooting can be tight in the neck constant and severe at times as well worse with reaching over his head with his right arm weightbearing and reaching forward with weight in the arm patient reports no loss of motor function but significant fatigability of the right hand compared to the left. Physical Exam: VS: Blood pressure is 166/81 pulse 99 respirations 18 temperature 98.3 F height is 5 foot 5 inches weight is 157 pounds PE: PHYSICAL EXAMINATION: GENERAL: The patient is awake, alert, oriented, appropriate, very pleasant in demeanor HEENT: Shows normocephalic, atraumatic. Extraocular movements are intact and symmetrical. Oral cavity: Mucous membranes moist and pink. NECK: Shows anterior throat supple without palpable lymphadenopathy noted. Swallow reflex symmetrical. CHEST: Shows normal on inspection. Breath sounds are clear bilaterally, no rales rhonchi wheezes auscultated. HEART: Shows S1, S2 clear. No murmurs auscultated. ABDOMEN: Soft, nontender, nondistended. No palpable organomegaly is noted. BACK: Shows spine grossly in the midline. Normal-appearing cervical lordotic curvature. Cervical paraspinous muscles show symmetrical inspection palpation some moderate tenderness diffusely more on the right than the left in the middle and inferior aspect the cervical paraspinous muscular as well as superior medial trapezius on the right but without trigger points without radiation. Patient shows full rotation motion cervical spine both laterally as well as extension and flexion without significant increase in pain. EXTREMITIES: Upper extremities show deep tendon reflexes 2+ in the biceps and triceps tendons. Motor exam is 4 on a scale of 5 with right elevator pilot, biceps and tricep flexion and 5/5 on the left. Peripheral pulses are 2+ radial. No peripheral edema is noted bilaterally. Upper extremities are warm and dry to touch, equal in color and appearance. SKIN: Shows warm and dry, good turgor. No edema. No sores, rashes or bruising throughout. Procedure: Procedure: Options were discussed with the patient. Patient chart reviewed his current medication regimen updated current review of systems updated today as well. We will preauthorize patient for a second cervical epidural steroid injection with fluoroscopic guidance. Patient with clinical radiculopathy in C6-7 dermatomal distribution on the right. Once approved, we will plan for translaminar approach C6-7 cervical epidural steroid injection with fluoroscopic guidance. In the meantime, patient will continue with stretching strength exercises as well as oral analgesics. Also will E scribed oxycodone 7.5 mg with instructions and side effects aware discussed with the patient. Medication Injected: Med Injected: None Condition at Discharge: Condition at Discharge: Condition at discharge is stable. LINETTE HELMS MD Feb 07, 2021 10:03
== END | disposition home or self-care (01) ==
LOC: PNCL 09:20
PROVIDERS: ATTEND Anesthesiology
DX: M50.10 Cervical disc disorder with radiculopathy, unspecified cervical region (principal); M48.02 Spinal stenosis, cervical region; I10 Essential (primary) hypertension; E11.9 Type 2 diabetes mellitus without complications; N40.0 Benign prostatic hyperplasia without lower urinary tract symptoms; Z79.82 Long term (current) use of aspirin; Z79.84 Long term (current) use of oral hypoglycemic drugs; Z79.899 Other long term (current) drug therapy; Z98.890 Other specified postprocedural states; Z72.89 Other problems related to lifestyle
CPT/HCPCS: 99212; G0463

== ENCOUNTER → 2021-02-21 | Outpatient (CLI) | payer OTHER ==
[~2021-02-21] MED LIST changes: +IOHEXOL 180 MG/ML 10 ML VIAL. ONE; +methylPREDNISolone ACETATE 40 MG/ML VIAL. ONE; +methylPREDNISolone ACETATE 80 MG/ML VIAL. ONE
--- NOTE | 2021-02-21 09:01 | PDOC ---
Progress Note - Pain Clinic Date of Service: DOS: DATE: 02/21/21 TIME: 08:58 Diagnosis: Dx: Cervical radiculopathy with cervical degenerative disease and cervical spinal stenosis History or Present Illness: HPI: 70-year-old male returns for follow-up status post cervical epidural steroid injection x1. Patient reports he did fairly well after the injection about 50% improvement with that still significant pain the base the neck and the right shoulder right upper extremity patient reports that is more in the neck now than the arm but still radiates into the arm occasionally patient what is radiating constant with activity but better with rest patient what is aching and dull in the neck tight in the neck as well rated a 6 on scale 10 is worst over the past week 5 on average for its least is a 4 today. Patient reports still awakening from sleep about every 5-6 hours no loss of motor function of the right upper extremity but his neck is more painful than the right arm at this time. Patient is also been taking oxycodone 7.5 mg and we will give him a refill of those today and we did discuss that this was not a long-term solution and would not be prescribed on a long-term basis. Patient was given instructions well side effects beware with the medication. Patient reports no loss of motor function with significant fatigability with the right arm with repetitive motions reaching and lifting with weightbearing to the forward aspect of rotation. Physical Exam: VS: Blood pressure is 150/73 pulse 88 respirations 16 temperature is 98.0 F weight is 156 pounds PE: PHYSICAL EXAMINATION: GENERAL: The patient is awake, alert, oriented, appropriate, very pleasant in demeanor HEENT: Shows normocephalic, atraumatic. Extraocular movements are intact and symmetrical. Oral cavity: Mucous membranes moist and pink. NECK: Shows anterior throat supple without palpable lymphadenopathy noted. Swallow reflex symmetrical. CHEST: Shows normal on inspection. Breath sounds are clear bilaterally. HEART: Shows S1, S2 clear. No murmurs auscultated. ABDOMEN: Soft, nontender, nondistended. No palpable organomegaly is noted. BACK: Shows spine grossly in the midline. Normal-appearing cervical lordotic curvature. Cervical paraspinous muscles show symmetrical inspection, palpation some moderate tenderness diffusely in the right upper middle lower distribution the paraspinous muscles but without specific radiation without trigger points patient shows full rotation motion cervical spine both laterally as well as full extension full forward flexion somewhat guarded with extension but not with forward flexion and perform these movements fully. EXTREMITIES: Upper extremities show deep tendon reflexes 2+ in the biceps and triceps tendons. Motor exam is 4 on a scale of 5 with right power saw mechanic, biceps and triceps flexion and 5/5 on the left. Peripheral pulses are 2+ radial. No peripheral edema is noted bilaterally. Upper extremities are warm and dry to touch, equal in color and appearance. SKIN: Shows warm and dry, good turgor. No edema. No sores, rashes or bruising throughout. Procedure: Procedure: Options were discussed with the patient. Patient's old chart was reviewed his current medication regimen updated current review of systems updated today as well. We will proceed with a cervical epidural steroid injection today with fluoroscopic guidance risks were discussed including but not limited to: Bleeding, infection, possibility of epidural hematoma and subsequent neurological compromise, dural puncture, headaches, spinal cord and/or nerve damage, side effects of steroid medication, and poor results regarding pain control. Patient understands and wished to proceed. Patient return to clinic in approximately 2 weeks for follow-up, was counseled return appointment, activity level, and side effects to be aware of. Medication Injected: Med Injected: Procedure cervical epidural steroid injection at the C6-7 level, using local anesthetic under sterile prep and drape using C-arm fluoroscopic guidance under local anesthesia medications injected ;120 mg Depo-Medrol +5 mL normal saline and 2 mL contrast; condition at discharge is stable patient tolerated procedure well. and had no complications Condition at Discharge: Condition at Discharge: Condition at discharge stable, patient tolerated procedure well had no complications. LINETTE HELMS MD Feb 21, 2021 09:01
--- NOTE | 2021-02-21 09:02 | PDOC4 ---
Procedure Note: ICD 10 Code: ICD 10 Code: M54.12 M50.30 M 48.02 Procedure Note: Patient was consented for cervical epidural steroid injection with fluoroscopic guidance. Risks were discussed including but not limited to: Bleeding, infection, possibility of epidural hematoma and subsequent neurological compromise, dural puncture, headaches, spinal cord and/or nerve damage, side effects of steroid medication, and poor results regarding pain control. Patient understands and wished to proceed. Procedure cervical epidural steroid injection at the C6-7 level, using local anesthetic under sterile prep and drape using C-arm fluoroscopic guidance under local anesthesia medications injected ;120 mg Depo-Medrol +5 mL normal saline and 2 mL contrast; condition at discharge is stable patient tolerated procedure well. and had no complications LINETTE HELMS MD Feb 21, 2021 09:02
== END | disposition home or self-care (01) ==
LOC: PNCL 08:24
PROVIDERS: ATTEND Anesthesiology
DX: M50.10 Cervical disc disorder with radiculopathy, unspecified cervical region (principal); M48.02 Spinal stenosis, cervical region; I10 Essential (primary) hypertension; E11.9 Type 2 diabetes mellitus without complications; N40.0 Benign prostatic hyperplasia without lower urinary tract symptoms; Z79.82 Long term (current) use of aspirin; Z79.84 Long term (current) use of oral hypoglycemic drugs; Z79.899 Other long term (current) drug therapy; Z98.890 Other specified postprocedural states; Z72.89 Other problems related to lifestyle
CPT/HCPCS: 62321; J1030; J1040; Q9965

== ENCOUNTER → 2021-03-02 | Outpatient (CLI) | payer OTHER ==
[~2021-03-02] MED LIST changes: -IOHEXOL 180 MG/ML 10 ML VIAL. ONE; +OXYC1TAB17 PO; -methylPREDNISolone ACETATE 40 MG/ML VIAL. ONE; -methylPREDNISolone ACETATE 80 MG/ML VIAL. ONE
--- NOTE | 2021-03-02 16:50 | NUR ---
Patient called requesting a refill on his pain pills. checked [facility] Patient has had multiple scrips in a 30 day span. discussed not over taking meds. heat ice, and that joint terminal attack controller narcotics was not an option. patient verbalized under standing. Patient states his pain level is a 2 with meds and a 6-7 with out. Patient denies any new medical problems, new medications, or constipation. Patients name and verified. Pharmacy Verified, next appointment verified. call transferred to Dr Florez.
--- NOTE | 2021-03-02 16:55 | PDOC ---
Progress Note - Pain Clinic Date of Service: DOS: DATE: 03/02/21 TIME: 16:53 Diagnosis: Dx: Cervical radiculopathy with cervical degenerative disease and cervical spinal stenosis History or Present Illness: HPI: Telemedicine visit today with patient's identity verified with full name and date of , total time spent 12 minutes 70-year-old male calls for requested refill oxycodone after cervical epidural steroid injection February 21, 2021 patient reports he did much better after the second injection but still has significant pain and is requesting a medication refill as he is run out of the medication and the pain is returning now we discussed that is only been 2 weeks since the last occasion was given and patient is aware of this and we discussed decreasing the usage of this as well. Patient verbalizes understanding. Also informed patient would not be an ongoing long-term medication for him and after his treatment here no longer be prescribing this for him. Patient understands verbally as well. Patient has had appropriate [facility] reports although has had multiple prescriptions over the past year although small numbers of pills have been taking the medication fairly consistently prior to his cervical epidural steroid injections. We will prescribe 20 tablets of oxycodone 7.5 mg patient was given instructions well side effects to be aware of with the medication which will be electronically prescribed today we will see the patient next week as scheduled. Physical Exam: PE: LINETTE HELMS MD Mar 02, 2021 16:55
== END | disposition home or self-care (01) ==
LOC: PNCL 10:49
PROVIDERS: ATTEND Anesthesiology
DX: M50.10 Cervical disc disorder with radiculopathy, unspecified cervical region (principal); M48.02 Spinal stenosis, cervical region; I10 Essential (primary) hypertension; E11.9 Type 2 diabetes mellitus without complications; N40.0 Benign prostatic hyperplasia without lower urinary tract symptoms; Z79.82 Long term (current) use of aspirin; Z79.84 Long term (current) use of oral hypoglycemic drugs; Z79.899 Other long term (current) drug therapy; Z98.890 Other specified postprocedural states; Z72.89 Other problems related to lifestyle
CPT/HCPCS: 99212; G0463

== ENCOUNTER → 2021-03-07 | Outpatient (CLI) | payer OTHER ==
--- NOTE | 2021-03-07 09:11 | PDOC ---
Progress Note - Pain Clinic Date of Service: DOS: DATE: 03/07/21 TIME: 09:06 Diagnosis: Dx: Cervical radiculopathy with cervical degenerative disease and cervical spinal stenosis History or Present Illness: HPI: 70-year-old male returns for follow-up status post cervical epidural steroid injection x2. Patient reports about 70% improvement and is currently still helping with pain still the base the neck rating the right upper extremity patient reports aching pain is dull and tight in the neck rating the right shoulder and arm and to the right side in the lateral deltoid and anterior bicep patient reports is a 5 on scale 10 is worse over the past week for an average 3 distillation is a 5 today patient reports is aching dull tight on and off intensity worse with repetitive motions reaching over his head with his right hand reaching forward with weightbearing and driving. Patient reports it wakes him from sleep occasionally but not more than once every 6 hours or so patient reports he doing much better increase his activity at home doing work activities household activities travel with greater ease and comfort driving a car more comfortably now as well but still significant pain radiating in the right upper extremity as noted. Patient continues with stretching strength exercises also taking oxycodone 7.5 mg which decrease the pain significantly as well. Patient reports he is been able to decrease the amount of pain medication has been taking since his last injection also is increasing his activity significantly at home around the house as well as driving more and is certainly more comfortably. Patient reports no side effects with medication. Physical Exam: VS: Blood pressure 150/81 pulse 99 respirations 18 temperature 98.3 F weight is 153 pounds PE: PHYSICAL EXAMINATION: GENERAL: The patient is awake, alert, oriented, appropriate, very pleasant demeanor HEENT: Shows normocephalic, atraumatic. Extraocular movements are intact and symmetrical. Oral cavity: Mucous membranes moist and pink. Dentition is intact. NECK: Shows anterior throat supple without palpable lymphadenopathy noted. Swallow reflex symmetrical. CHEST: Shows normal on inspection. Breath sounds are clear bilaterally, no rales or rhonchi. HEART: Shows S1, S2 clear. No murmurs auscultated. ABDOMEN: Soft, nontender, nondistended. No palpable organomegaly is noted. BACK: Shows spine grossly in the midline. Normal-appearing cervical lordotic curvature. Cervical paraspinous muscles show symmetrical with inspection on palpation some moderate tenderness diffusely more in the right than the left middle and inferior aspect of the cervical paraspinous musculature in the superior medial trapezius on the right side without specific trigger points very firm musculature very tender with direct palpation but without specific radiation. Patient shows full rotation motion cervical spine both laterally with some moderate tenderness with far right lateral rotation past 45 degrees but not left full extension full forward flexion is performed without significant difficulty. There is slightly increased thoracic kyphosis, some minor flattening of the lumbar lordotic curvature. EXTREMITIES: Upper extremities show deep tendon reflexes deep in the biceps and triceps tendons. 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 Peripheral pulses are 2+ radial. No peripheral edema is noted bilaterally. Upper extremities are warm and dry to touch, equal in color and appearance. SKIN: Shows warm and dry, good turgor. No edema. No sores, rashes or bruising throughout. Procedure: Procedure: Options discussed with the patient. Patient's old chart was used his current medication regimen updated current review of systems updated today as well. We will preauthorize patient for a additional cervical epidural steroid injection he did very well after last injection with about 70% improvement still lasting but with persistent C6-7 dermatomal distribution radiculopathy on the right side. Once authorized, patient return for translaminar approach C6-7 level cervical epidural steroid injection with fluoroscopic guidance. Meantime, patient will continue with stretching strength exercises heat application as well as oral analgesics as currently. Medication Injected: Med Injected: None Condition at Discharge: Condition at Discharge: Condition at discharge is stable. LINETTE HELMS MD Mar 07, 2021 09:10
== END | disposition home or self-care (01) ==
LOC: PNCL 08:26
PROVIDERS: ATTEND Anesthesiology
DX: M50.10 Cervical disc disorder with radiculopathy, unspecified cervical region (principal); M48.02 Spinal stenosis, cervical region; E11.9 Type 2 diabetes mellitus without complications; I10 Essential (primary) hypertension; N40.0 Benign prostatic hyperplasia without lower urinary tract symptoms; Z79.899 Other long term (current) drug therapy; Z98.890 Other specified postprocedural states; Z79.82 Long term (current) use of aspirin; Z79.84 Long term (current) use of oral hypoglycemic drugs; Z72.89 Other problems related to lifestyle
CPT/HCPCS: 99212; G0463

== ENCOUNTER → 2021-03-21 | Outpatient (CLI) | payer OTHER ==
[~2021-03-21] MED LIST changes: +IOHEXOL 180 MG/ML 10 ML VIAL. ONE; +methylPREDNISolone ACETATE 40 MG/ML VIAL. ONE; +methylPREDNISolone ACETATE 80 MG/ML VIAL. ONE
--- NOTE | 2021-03-21 09:33 | PDOC ---
Progress Note - Pain Clinic Date of Service: DOS: DATE: 03/21/21 TIME: 09:29 Diagnosis: Dx: Cervical radiculopathy with cervical degenerative disc disease and cervical spinal stenosis History or Present Illness: HPI: 70-year-old male returns for follow-up status post cervical epidural steroid injection on March 07, 2021 patient did very well initially patient reports that the first week or so his pain is reduced by about 50 to 60% but the pain returns in the base of the neck and the right side of the neck with some radi ation into the right posterior ear as well as into the upper shoulder less pain in the arm at this time as he had previously but the pain in the neck is still persistent patient reports a 6 on scale 10 is worst 5 on average/and is a 4 today patient ports aching sharp tight shooting can be radiating constant to the shoulder and arm but is mostly in the neck itself patient reports is not worse with any rotation of motion of the neck looking up looking down it is just fairly consistent and persistent in the right side of the neck patient reports no bowel or bladder incontinence patient reports he is doing much better for the first week or so with distance walking doing household activities sleeping better now all of these activities are more difficult and increasing pain. Physical Exam: VS: Blood pressure is 145/81 pulse 85 respirations 18 temperature 97.8 degrees urinary height 5 feet 5 inches weight is 159 pounds PE: PHYSICAL EXAMINATION: GENERAL: The patient is awake, alert, oriented, appropriate, very pleasant in demeanor HEENT: Shows normocephalic, atraumatic. Extraocular movements are intact and symmetrical. Oral cavity: Mucous membranes moist and pink. Dentition is intact. NECK: Shows anterior throat supple without palpable lymphadenopathy noted. Swallow reflex symmetrical. CHEST: Shows normal on inspection. Breath sounds are clear bilaterally. HEART: Shows S1, S2 clear. No murmurs auscultated. ABDOMEN: Soft, nontender, nondistended. No palpable organomegaly is noted. BACK: Shows spine grossly in the midline. Normal-appearing cervical lordotic curvature. Cervical paraspinous muscles show symmetrical with inspection on palpation some moderate tenderness diffusely in the mid to lower distribution the right-sided paraspinous musculature but not the left no asymmetry no atrophy hypertrophy no specific trigger points were identified patient shows good rotation of motion cervical spine both laterally greater than 45 degrees closer 90 degrees right and left without significant pain or limitation also full extension full forward flexion without increase in pain as well. There is slightly increased thoracic kyphosis, some minor flattening of the lumbar lordotic curvature. EXTREMITIES: Upper extremities show deep tendon reflexes 2+ in the biceps and triceps tendons. 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 Peripheral pulses are 1+ radial. No peripheral edema is noted bilaterally. Upper extremities are warm and dry to touch, equal in color and appearance. SKIN: Shows warm and dry, good turgor. No edema. No sores, rashes or bruising throughout. Procedure: Procedure: Options were discussed with the patient. Patient chart reviewed his current medication regimen updated current review of systems updated today as well. We will proceed with a third in the series cervical epidural steroid injection today with fluoroscopic guidance. Risks were discussed including but not limited to: Bleeding, infection, possibility of epidural hematoma and subsequent neurological compromise, dural puncture, headaches, spinal cord and/or nerve damage, side effects of steroid medication, and poor results regarding pain control. Patient understands and wished to proceed. Also will order physical therapy with strengthening stretching exercise as well as cervical traction heat and massage therapy as well as stretching and postural training. Patient will return to the clinic in approximately 4 weeks for follow-up, was counseled as return appointment, activity level, and side effect to be aware of. Medication Injected: Med Injected: Procedure cervical epidural steroid injection at the C6-7 level, using local anesthetic under sterile prep and drape using C-arm fluoroscopic guidance under local anesthesia medications injected ;120 mg Depo-Medrol +5 mL normal saline and 2 mL contrast; condition at discharge is stable patient tolerated procedure well. and had no complications Condition at Discharge: Condition at Discharge: Condition at discharge stable, patient tolerated procedure well and had no complications. LINETTE HELMS MD Mar 21, 2021 09:33
--- NOTE | 2021-03-21 09:34 | PDOC4 ---
Procedure Note: ICD 10 Code: ICD 10 Code: M51.12 M50.30 M4 8.02 Procedure Note: Patient was consented for cervical epidural steroid injection with fluoroscopic guidance. Risks were discussed including but not limited to: Bleeding, infection, possibility of epidural hematoma and subsequent neurological compromise, dural puncture, headaches, spinal cord and/or nerve damage, side effects of steroid medication, and poor results regarding pain control. Patient understands and wished to proceed. Procedure cervical epidural steroid injection at the C6-7 level, using local anesthetic under sterile prep and drape using C-arm fluoroscopic guidance under local anesthesia medications injected ;120 mg Depo-Medrol +5 mL normal saline and 2 mL contrast; condition at discharge is stable patient tolerated procedure well. and had no complications LINETTE HELMS MD Mar 21, 2021 09:33
== END | disposition home or self-care (01) ==
LOC: PNCL 08:53
PROVIDERS: ATTEND Anesthesiology
DX: M50.10 Cervical disc disorder with radiculopathy, unspecified cervical region (principal); M48.02 Spinal stenosis, cervical region; M54.12 Radiculopathy, cervical region; I10 Essential (primary) hypertension; E11.9 Type 2 diabetes mellitus without complications; N40.0 Benign prostatic hyperplasia without lower urinary tract symptoms; Z79.82 Long term (current) use of aspirin; Z79.84 Long term (current) use of oral hypoglycemic drugs; Z79.899 Other long term (current) drug therapy; Z98.890 Other specified postprocedural states; Z72.89 Other problems related to lifestyle
CPT/HCPCS: 62321; J1030; J1040; Q9965